=== PATIENT | male | born 1955 | race Caucasian/White ===

== ENCOUNTER 2017-08-29 17:33 | Inpatient (IN) ==
[2017-08-29] MEDS ORDERED: Vancomycin 2,000 MG in D5% in Water 250 ML IVPB ONE (20:37)
[2017-08-29] MEDS ORDERED: Ondansetron 4 MG/2 ML VIAL IVP ONE (20:42)
[2017-08-29] MEDS ORDERED: *HR* Morphine 2 MG/ML SYRINGE IVP ONE ×2 (20:43→22:17)
[2017-08-29] MEDS ORDERED: Vancomycin 2,000 MG in D5% in Water 500 ML IVPB ONE (20:44)
--- NOTE | 2017-08-29 20:44 | Emergency Department Note ---
Disposition Clinical Impression: Diabetic foot, Hyperglycemia Cellulitis Qualifiers: Site of cellulitis: extremity Site of cellulitis of extremity: lower extremity Laterality: right Qualified Code(s): L03.115 - Cellulitis of right lower limb Disposition: Admitted As Inpatient Condition: Fair Extremity Problem HPI - General Chief complaint: ED Extremity Problem,Nontraumatic Stated complaint: stepped on toothpick 6 days ago Time Seen by Provider: 08/29/17 20:16 Source: patient, EMS Mode of arrival: EMS Limitations: no limitations Nursing Notes Reviewed: Yes Vital Signs Reviewed: Yes - History of Present Illness HPI Narrative: 62-year-old male with history of CAD, diabetes, hypertension presents for evaluation of right foot pain. Patient states he stepped on a toothpick approximately 6 days ago. At that time the plate toothpick was removed with the assistance of the patient's family. Patient's had worsening pain since then. Patient denies any fevers but does note redness and swelling has worsened in the past 24 hours. Patient was evaluated the [facility] and was transferred for further evaluation. Patient states that pain is primarily in his right foot. Patient denies any other symptoms. No chest pain or shortness of breath. No nausea or vomiting. Patient Pain Scale: 9 - Related Data Allergies Allergy/AdvReac Type Severity Reaction Status Date / Time lisinopril AdvReac Cough Verified 08/29/17 17:41 Past Medical History - Past Medical History Medical history: Reports: coronary artery disease, diabetes, hyperlipidemia, hypertension Psychiatric history: Reports: other - Social History Smoking Status: Never smoker Alcohol use: Reports: none Drug use: Reports: none Physical Exam - General Limitations: no limitations General appearance: alert, obese - Head Head exam: atraumatic, normocephalic, normal inspection - Eye Eye exam: Present: normal appearance, EOMI - ENT ENT exam: normal exam - Neck Neck exam: Present: normal inspection - Chest Chest inspection: Present: normal inspection, symmetric chest wall rise - Respiratory Respiratory exam: Present: normal lung sounds bilaterally. Absent: respiratory distress - Cardiovascular Cardiovascular exam: Present: regular rate, normal rhythm - Abdominal Exam Abdominal exam: Present: soft, Non-Tender - Extremities Exam Extremities exam: Present: normal inspection, other (Erythema and swelling on the dorsum and plantar aspect of the right foot. Brisk cap refill. Neurovascularly intact. Skin marker outlining erythema.) - Neurological Exam Neurological exam: Present: alert, oriented X3 - Skin Skin exam: Present: warm Course Course Narrative: Patient seen and examined. Patient's lab work was reviewed from the [facility]. Patient will be admitted to the hospital service on antibiotic therapy to ensure symptom resolution. Patient was started on vancomycin as well as Zosyn. - Consultations Consultation #1: Spoke with podiatry regarding the patient. Patient would likely need podiatry consult in the hospital setting. Time: 22:12 Vital Signs Temperature 97.3 F L 08/29/17 17:36 Pulse Rate 88 08/29/17 17:36 Respiratory Rate 20 08/29/17 17:36 Blood Pressure 130/88 08/29/17 17:36 O2 Sat by Pulse Oximetry 97 08/29/17 17:36 Temperature 97.3 F L 08/29/17 17:36 Pulse Rate 88 08/29/17 17:36 Respiratory Rate 18 08/29/17 21:31 Blood Pressure 148/78 08/29/17 21:31 O2 Sat by Pulse Oximetry 97 08/29/17 17:36 Oxygen Delivery Oxygen Delivery Room Air Extremity Problem, Nontraumati - MDM Narrative Medical decision making narrative: CT 2-year-old male patients for evaluation of right foot cellulitis. Patient is step on a toothpicks proximally 6 days ago. It was verified at the toothpick was removed from the patient's foot. Ultrasound of the right foot does not show any evidence of foreign body. Patient does have evidence of cellulitis. Patient is at high risk for worsening infection given his history of diabetes and other comorbidities. Patient was transferred from the [facility] as he did not have podiatry. Patient was started on antibiotics in the emergency department. Patient had a foot x-ray obtained at the [facility]. Patient also had initial lab work obtained at the [facility] as well. Patient's pain was controlled emergency department. Patient will be admitted to the hospital service for further evaluation and monitoring. - Lab Data Lab results reviewed: Yes I reviewed the patient's lab results. Result diagrams: 08/29/17 20:48 08/29/17 20:48 Lab Results 08/29/17 08/29/17 Range/Units 20:48 20:48 WBC 11.1 (4.3-11.1) K/mcL RBC 4.93 (4.19-5.50) M/mcL Hgb 13.6 (12.9-16.9) g/dL Hct 42.5 (37.5-50.1) % MCV 86.2 (83.0-100.0) fL MCH 27.6 L (28.0-33.3) pg MCHC 32.0 (31.6-35.5) g/dL RDW 14.2 (11.5-14.5) % Plt Count 289 (140-400) K/mcL MPV 10.4 (9.4-12.4) fL Immature Gran % 0.5 (0-4) % Seg Neutrophils % 68.1 % Lymphocytes % 20.8 % Monocytes % 9.2 % Eosinophils % 1.0 % Basophils % 0.4 % Neutrophils # 7.6 (1.6-8.9) K/mcL Lymphocytes # 2.3 (0.6-4.6) K/mcL Monocytes # 1.0 (0.0-1.3) K/mcL Eosinophils # 0.1 (0.0-0.6) K/mcL Basophils # 0.0 (0.0-0.2) K/mcL Sodium 138 (136-145) mEq/L Potassium 4.4 (3.5-5.1) mEq/L Chloride 104 (98-107) mEq/L Carbon Dioxide 24 (23-29) mEq/L BUN 19 (8-23) mg/dL Creatinine 1.00 (0.70-1.30) mg/dL Est GFR ( Amer) > 60 (> 60) Est GFR (Non-Af Amer) > 60 (> 60) BUN/Creatinine Ratio 19 (6-26) Glucose 206 H (70-105) mg/dL Calculated Osmolality 294 (280-300) Calcium 9.1 (8.6-10.3) mg/dL Attestation Statement - Attestation Attestation: I examined this patient and my medical decision-making was reviewed with the Resident Physician. I agree with the documented findings, disposition and treatment plan as described except to the extent set forth below. Diabetic with foot infection S/P stepping on toothpick a few days ago. Toothpick removed, thinks it was removed intact but not sure. No FB visible on Dr. Bazzi' ultrasound, but sensitivity of this study is suboptimal. Discussed with podiatry, they will evaluate. Admission to medicine on IV abx. SIRS negative.
[2017-08-29 20:55] LABS: Basophils % 0.4 %; Eosinophils # 0.1 K/mcL (0.0-0.6); Hematocrit 42.5 % (37.5-50.1); Hemoglobin 13.6 g/dL (12.9-16.9); Immature Granulocytes % 0.5 % (0-4); Lymphocytes # 2.3 K/mcL (0.6-4.6); Lymphocytes % 20.8 %; Mean Corpuscular Hemoglobin 27.6 pg (28.0-33.3); Mean Corpuscular Volume 86.2 fL (83.0-100.0); Mean Platelet Volume 10.4 fL (9.4-12.4); Monocytes % 9.2 %; Neutrophils # 7.6 K/mcL (1.6-8.9); Platelet Count 289 K/mcL (140-400); Red Blood Count 4.93 M/mcL (4.19-5.50); Red Cell Distribution Width 14.2 % (11.5-14.5); Segmented Neutrophils % 68.1 %
[2017-08-29 21:19] LABS: BUN/Creatinine Ratio 19 (6-26); Blood Urea Nitrogen 19 mg/dL (8-23); Calcium 9.1 mg/dL (8.6-10.3); Carbon Dioxide 24 mEq/L (23-29); Chloride 104 mEq/L (98-107); Glucose 206 mg/dL (70-105); Osmolality,Calculated 294 (280-300); Potassium 4.4 mEq/L (3.5-5.1); Sodium 138 mEq/L (136-145); eGFR For African Americans > 60 (> 60); eGFR For Non-African Americans > 60 (> 60)
[2017-08-29] MEDS ORDERED: Piperacillin/Tazobactam 3.375 GM/200 ML BAG IVPB ONE (22:03)
--- NOTE | 2017-08-30 05:48 | Internal Med History&Physical ---
<Mark Anthony Bowers - Last Filed: 08/30/17 07:18> Date of Encounter: 08/30/17 Time of Encounter: 05:00 Assessment and Plan (1) Cellulitis Current visit: Yes Status: Acute R foot cellulitis, pt afebrile, stable--injury sustained after stepping on wooden toothpick, whole toothpick removed by family member 6 days ago. XR foot obtained at [facility]; normal osseous alignment, no osseous involvement, no retained foreign body. Would/blood culture obtained at [facility] as well; pending, will need to request results. Consider podiatry consult. Continue Vanc/Zosyn. Qualifiers: Site of cellulitis: extremity Site of cellulitis of extremity: lower extremity Laterality: right Qualified Code(s): L03.115 - Cellulitis of right lower limb (2) Type 2 diabetes mellitus Current visit: Yes Status: Acute On SSI Qualifiers: Diabetes mellitus complication status: without complication Diabetes mellitus snf insulin use: without loom changeover operator use Qualified Code(s): E11.9 - Type 2 diabetes mellitus without complications (3) CAD (coronary artery disease) Current visit: Yes Status: Acute S/P stenting after [place] 2 1/2 years ago. Continue ASA, statin, BB, hydralazine Qualifiers: Coronary Disease-Associated Artery/Lesion type: [place] artery [place] vs. transplanted heart: [place] heart Associated angina: without angina Qualified Code(s): I25.10 - Atherosclerotic heart disease of [place] coronary artery without angina pectoris (4) HTN (hypertension) Current visit: Yes Status: Acute Chronic, continue BB, hydralazine. Qualifiers: Hypertension type: essential hypertension Qualified Code(s): I10 - Essential (primary) hypertension Internal Medicine - H&P: HPI Admitted From: Home Plans for Post Hospital Care: Home History of present illness: Mr. Rico is a 62 year old male PMH CAD stenting 2 1/2 years ago, DM2 non- insulin dependent, presents with 6d of R foot pain after stepping on a toothpick. Pt had a family member remove the toothpick. [facility], showing no osseous involvement, no retained foreign object. Cultures obtained at [facility] as well. ED started vanc/zosyn. Currently stable, denying fever, chills, tachypnea. Wound is well-dressed, ED removed some pus and blood, wound is approx 1/2 centimeter in size. Past Med Surg Social Fam HX - Past Medical History Medical history: coronary artery disease, diabetes, hyperlipidemia, hypertension Psychiatric history: other - Social History Smoking Status: Never smoker Alcohol use: none Drug use: none Internal Medicine - H&P: Meds Aspirin Enteric Coated [Aspirin EC] 81 mg PO DAILY 08/29/17 [History] Carvedilol 12.5 mg PO BID 08/29/17 [History] Metformin HCl [Glucophage] 1,000 mg PO QAM 08/29/17 [History] Sildenafil Citrate [Viagra] 100 mg PO AD PRN 08/29/17 [History] Simvastatin [Zocor] 40 mg PO HS 08/29/17 [History] glipiZIDE [Glucotrol] 5 mg PO BIDWM 08/29/17 [History] hydrALAZINE [HydrALAZINE] 25 mg PO Q6HR 08/29/17 [History] metFORMIN [Glucophage] 500 mg PO BID 08/29/17 [History] 3 Allergy/AdvReac Type Severity Reaction Status Date / Time lisinopril AdvReac Cough Verified 08/29/17 17:41 All Systems PM: A 10-system review of systems was performed and is negative for pertinent findings except as documented above in the HPI. - Constitutional Vitals: Temp Pulse Resp BP Pulse Ox 97.9 F 94 18 152/95 94 08/30/17 04:07 08/30/17 04:07 08/30/17 04:07 08/30/17 04:07 08/30/17 04:07 General appearance: Present: A&O X 3, no acute distress, answers questions appropriately Exam: essential tremor, old - Neck Neck exam general surgery: Present: full ROM. Absent: nuchal rigidity - Respiratory Respiratory exam: Present: CTAB - Cardiovascular Cardiovascular exam: Present: RRR, +S1, +S2. Absent: systolic murmur - Extremities Exam Extremities exam: Present: normal capillary refill, warm. Absent: calf tenderness Internal Med - H&P Results - Labs CBC & Chem 7: 08/29/17 20:48 08/30/17 06:04 <Kali Lambert - Last Filed: 08/30/17 08:40> Date of Encounter: 08/30/17 Internal Medicine - H&P: HPI History of present illness: Mr. Rico is a 62 year old male All Systems PM: A 10-system review of systems was performed and is negative for pertinent findings except as documented above in the HPI. - Constitutional Vitals: Temp Pulse Resp BP Pulse Ox 97.9 F 91 15 139/88 92 08/30/17 07:03 08/30/17 07:03 08/30/17 07:03 08/30/17 07:03 08/30/17 07:03 Internal Med - H&P Results - Labs CBC & Chem 7: 08/30/17 06:04 08/30/17 06:04 Labs: Short CBC 08/30/17 Range/Units 06:04 WBC 11.3 H (4.3-11.1) K/mcL Hgb 13.4 (12.9-16.9) g/dL Hct 41.8 (37.5-50.1) % Plt Count 294 (140-400) K/mcL Neutrophils # 7.5 (1.6-8.9) K/mcL BMP 08/30/17 06:04 Sodium 137 Potassium 4.2 Chloride 102 Carbon Dioxide 24 BUN 16 Creatinine 0.91 Glucose 159 H Calcium 9.2 - Attending Attestation Patient seen and examined, case discussed with resident physician, agree with H& P as listed above Patient stated he had R foot pain after stepping on a toothpick 6 days ago. X- ray no evidence of foreign body, patient complaining of pain and swelling right feet O right foot swelling and tenderness and redness A/P Right foot cellulitis Diabetes mellitus Continue current antibiotic, MRSA screening, if MRSA screening negative discontinue vancomycin. Insulin sliding scale. Continue home medication
[2017-08-30] MEDS ORDERED: Acetaminophen 325 MG TABLET PO PRN (05:53)
[2017-08-30] MEDS ORDERED: Ondansetron ODT 4 MG TAB.RAPDIS SL PRN (05:53)
[2017-08-30] MEDS ORDERED: Naloxone 0.4 MG/ML INJ IVP PRN (05:53)
[2017-08-30] MEDS ORDERED: D5% in Water 1,000 ML IVC PRN (05:57)
[2017-08-30] MEDS ORDERED: Dextrose Gel 15 GM/37.5 ML TUBE PO PRN ×2 (05:57)
[2017-08-30] MEDS ORDERED: *HR* Dextrose 50 % in Water (Syg) 50 ML SYRINGE IVP PRN (05:57)
[2017-08-30] MEDS ORDERED: Vancomycin 2,000 MG in D5% in Water 500 ML IVPB SCH (06:00)
[2017-08-30] MEDS: hydrALAZINE 25 MG TABLET PO SCH ×3 (06:50→16:35)
[2017-08-30 07:03] LABS: BUN/Creatinine Ratio 18 (6-26); Blood Urea Nitrogen 16 mg/dL (8-23); Calcium 9.2 mg/dL (8.6-10.3); Carbon Dioxide 24 mEq/L (23-29); Chloride 102 mEq/L (98-107); Glucose 159 mg/dL (70-105); Osmolality,Calculated 289 (280-300); Potassium 4.2 mEq/L (3.5-5.1); Sodium 137 mEq/L (136-145); eGFR For African Americans > 60 (> 60); eGFR For Non-African Americans > 60 (> 60)
[2017-08-30 07:43] LABS: Basophils % 0.4 %; Eosinophils # 0.1 K/mcL (0.0-0.6); Eosinophils % 1.2 %; Hematocrit 41.8 % (37.5-50.1); Hemoglobin 13.4 g/dL (12.9-16.9); Immature Granulocytes % 0.4 % (0-4); Lymphocytes # 2.5 K/mcL (0.6-4.6); Lymphocytes % 21.6 %; Mean Corpuscular HGB Conc 32.1 g/dL (31.6-35.5); Mean Corpuscular Hemoglobin 27.8 pg (28.0-33.3); Mean Corpuscular Volume 86.7 fL (83.0-100.0); Mean Platelet Volume 10.9 fL (9.4-12.4); Monocytes # 1.2 K/mcL (0.0-1.3); Monocytes % 10.5 %; Neutrophils # 7.5 K/mcL (1.6-8.9); Platelet Count 294 K/mcL (140-400); Red Blood Count 4.82 M/mcL (4.19-5.50); Red Cell Distribution Width 14.2 % (11.5-14.5); Segmented Neutrophils % 65.9 %
--- NOTE | 2017-08-30 09:12 | Event Note ---
Date of Encounter: 08/30/17 Time of Encounter: 09:06 Patient is a 62y/o male with PMH Of CAD, DM, HTN, and morbid obesity who is admitted for right foot cellulitis Pt sustained injury to the right foot by stepping on a wooden toothpick about 6 days ago. Pt seen and examined at bedside. Reports of pain in the right foot. Pain medications started. Podiatry consultation requested hx of DM: holding oral antihyperglycemic agents, started sliding scale insulin algorithm, monitor FS and BG hx of CAD: no signs of angina present, continue home meds: ASA, BB, Statin hx of HTN: BP within acceptable range, continue home dose of Hydralazine. Heparin SQ for DVT ppx
[2017-08-30] MEDS: Aspirin Enteric Coated 81 MG Tablet PO SCH (09:23)
[2017-08-30] MEDS: Vancomycin 1,500 MG in D5% in Water 250 ML IVPB SCH ×2 (09:23→22:25)
[2017-08-30] MEDS: Piperacillin/Tazobactam 3.375 GM/200 ML BAG IVPB SCH ×2 (09:24→16:35)
[2017-08-30] MEDS: Insulin LISPRO 300 UNITS/3 ML VIAL SQ SCH ×4 (09:25→22:24)
[2017-08-30] MEDS: *HR* HYDROcodone/Acet 5/325 mg TABLET PO PRN ×2 (09:30→16:39)
[2017-08-30 09:50] LABS: Hemoglobin A1C 8.4 %
--- NOTE | 2017-08-30 12:35 | Podiatry Consult Note ---
Date of Encounter: 08/30/17 Time of Encounter: 12:00 Assessment and Plan (1) Cellulitis Current visit: Yes Status: Acute Cellulitis to the right foot secondary to stepping on a wooden toothpick, history of DM. Moderate amount of pus expressed from puncture wound. WBC:11.3 a febrile. Per records: XR foot obtained at [facility]; normal osseous alignment, no osseous involvement, no retained foreign body. Wound cultures obtained and pending, will need to request results. Plan: Dr. Vigil to plan on taking patient to surgery tomorrow (08/30/17) for an I&D of the right foot. Will make NPO after midnight. Will order and ESR and CRP. Agree with present antibiotic therapy, wound cultures obtained at the [facility] and pending. Dry sterile dressing applied to the right foot. Qualifiers: Site of cellulitis: extremity Site of cellulitis of extremity: lower extremity Laterality: right Qualified Code(s): L03.115 - Cellulitis of right lower limb (2) Diabetic foot Current visit: Yes Status: Acute (3) Type 2 diabetes mellitus Current visit: Yes Status: Acute Qualifiers: Diabetes mellitus complication status: without complication Diabetes mellitus oil heaterman insulin use: without oil heaterman use Qualified Code(s): E11.9 - Type 2 diabetes mellitus without complications History of Present Illness HPI: Mr. Rico is a 62 year old male admitted to [facility] for cellulitis of the right foot. Patient has a medical history significant for diabetes mellitus, hyperlipidemia, HTN and CAD. Patient states 6 days ago he was getting out of bed in the morning and stepped on a wooden toothpick with his right foot. Patient states the toothpick broke off and half of it was stuck in his foot. Patient states his friend tried to remove the rest of the toothpick. Patient states he has had increased pain, redness and swelling since the incident. Patient states he travels back and forth from [place] to [place] and flew in from [place] 4 days ago. Patient went to the [facility] ED last night. Per patient the [facility] obtained wound cultures and had an xray. No c/o fever or chills. Patient denies any history of diabetic foot ulcers or surgery to his feet. Patient rates the right foot pain currently at an 8 out of 10. Patient admits to tingling in his feet. Patient states his blood sugars run in the mid 100s and does not know his last hemoglobin A1C. Past Med Surg Social Fam HX - Past Medical History Medical history: coronary artery disease, diabetes, hyperlipidemia, hypertension Psychiatric history: other - Social History Smoking Status: Never smoker Alcohol use: none Drug use: none Medications and Allergies Aspirin Enteric Coated [Aspirin EC] 81 mg PO DAILY 08/29/17 [History] Carvedilol 12.5 mg PO BID 08/29/17 [History] Metformin HCl [Glucophage] 1,000 mg PO QAM 08/29/17 [History] Sildenafil Citrate [Viagra] 100 mg PO AD PRN 08/29/17 [History] Simvastatin [Zocor] 40 mg PO HS 08/29/17 [History] glipiZIDE [Glucotrol] 5 mg PO BIDWM 08/29/17 [History] hydrALAZINE [HydrALAZINE] 25 mg PO Q6HR 08/29/17 [History] metFORMIN [Glucophage] 500 mg PO BID 08/29/17 [History] 3 Allergy/AdvReac Type Severity Reaction Status Date / Time lisinopril AdvReac Cough Verified 08/29/17 17:41 All Systems Reviewed: A 10-system review of systems was performed and is negative for pertinent findings except as documented above in the HPI. Physical Exam - Constitutional Vitals: Temp Pulse Resp BP Pulse Ox 97.8 F 77 18 128/82 93 08/30/17 12:27 08/30/17 12:27 08/30/17 12:27 08/30/17 12:27 08/30/17 12:27 Exam: General appearance: alert awake oriented X 3. Calm and pleasant, no acute distress.. Vascular: Pedal pulses +1/4 DP/PT , No evidence of cyanosis, pallor or rubor, Edema graded at 1+/4, Skin Temperature warm, No calf pain with manual compression. capillary refill time is immediate to digits. Neurologic: Sensation intact with light touch to foot. . Integument: Right foot is edematous. Erythema to the plantar aspect of the right foot at the base of toes #2 through #4 right ascending to the dorsal aspect midfoot. Erythema does not ascend past outline area. Puncture wound 0.4 mm in diameter x 1 cm in depth to the plantar aspect at the base of toes #2 and #3 right foot, purulent drainage oozing from wound, increased pus expressed with compression to the surrounding skin of the wound, no probe to bone, no odor. Foot is warm to touch. Results - Labs Result Diagrams: 08/30/17 06:04 08/30/17 06:04 Labs: Abnormal lab results WBC 11.3 K/mcL (4.3-11.1) H 08/30/17 06:04 MCH 27.8 pg (28.0-33.3) L 08/30/17 06:04 Glucose 159 mg/dL (70-105) H 08/30/17 06:04 POC Glucose 174 (58-89) H 08/30/17 12:04 Hemoglobin A1c 8.4 % (-5.6) H 08/30/17 06:06 H & H 08/30/17 Range/Units 06:04 Hgb 13.4 (12.9-16.9) g/dL Hct 41.8 (37.5-50.1) % All other labs normal. Consult Discharge Plan - Plan Referrals: [facility] [Outside] - 09/07/17 2:45 pm
[2017-08-30] MEDS: *HR* Heparin 5,000 UNIT/ML VIAL SQ SCH ×2 (16:35→22:20)
[2017-08-31] MEDS: Piperacillin/Tazobactam 3.375 GM/200 ML BAG IVPB SCH ×3 (00:12→17:24)
[2017-08-31] MEDS: hydrALAZINE 25 MG TABLET PO SCH ×4 (00:17→17:23)
[2017-08-31 05:48] LABS: BUN/Creatinine Ratio 16 (6-26); Blood Urea Nitrogen 14 mg/dL (8-23); Calcium 9.1 mg/dL (8.6-10.3); Carbon Dioxide 25 mEq/L (23-29); Chloride 102 mEq/L (98-107); Glucose 129 mg/dL (70-105); Magnesium 1.8 mg/dL (1.6-2.6); Osmolality,Calculated 280 (280-300); Phosphorous 3.1 mg/dL (2.7-4.5); Sodium 134 mEq/L (136-145); eGFR For African Americans > 60 (> 60); eGFR For Non-African Americans > 60 (> 60)
[2017-08-31] MEDS: *HR* Heparin 5,000 UNIT/ML VIAL SQ SCH ×2 (05:58→13:54)
[2017-08-31 06:07] LABS: Basophils % 0.4 %; Eosinophils # 0.1 K/mcL (0.0-0.6); Eosinophils % 1.2 %; Hematocrit 42.6 % (37.5-50.1); Hemoglobin 13.5 g/dL (12.9-16.9); Immature Granulocytes % 0.6 % (0-4); Lymphocytes # 2.5 K/mcL (0.6-4.6); Lymphocytes % 23.3 %; Mean Corpuscular HGB Conc 31.7 g/dL (31.6-35.5); Mean Corpuscular Hemoglobin 27.2 pg (28.0-33.3); Mean Corpuscular Volume 85.9 fL (83.0-100.0); Mean Platelet Volume 10.5 fL (9.4-12.4); Monocytes # 1.1 K/mcL (0.0-1.3); Monocytes % 10.1 %; Platelet Count 293 K/mcL (140-400); Red Blood Count 4.96 M/mcL (4.19-5.50); Red Cell Distribution Width 14.2 % (11.5-14.5); Segmented Neutrophils % 64.4 %
[2017-08-31] MEDS: Insulin LISPRO 300 UNITS/3 ML VIAL SQ SCH ×3 (07:21→17:36)
[2017-08-31] MEDS: Vancomycin 1,500 MG in D5% in Water 250 ML IVPB SCH (11:15)
[2017-08-31] MEDS: Aspirin Enteric Coated 81 MG Tablet PO SCH (11:16)
--- NOTE | 2017-08-31 12:36 | Podiatry Progress Note ---
Date of Encounter: 08/31/17 Time of Encounter: 10:25 - Assessment and Plan (1) Abscess of right foot Current Visit: Yes Status: Acute discussed condition and infection/abscess present. discussed surgery (I&D or antibiotics or a combination of both)discussed with patient he could lose his leg or part of his foot. in agreement with the I&D. risks vs benefits potential complications and consequences of the procedure discussed with the patient. all questions answered informed consent was signed. get ID consult for antibiotics recommendations. remain NPO. weight caller to OR. I've been paged multiple times for this okay to cleanse foot separate from the rest of his body or can leave it alone. I do not want the bandage to be wet and him sitting around in a wet bandage, the patient was told this. Subjective Interval history: admitted with right diabetic foot infection and purulent drainage. he stepped on a tooth pick about a week ago. reciving IV antibiotics. patient and family requesting to eat despite knowing he needs to remain npo for surgery. Objective - Vital Signs Vital Signs: Vital Signs Temp Pulse Resp BP Pulse Ox 08/31/17 12:11 99.0 F 89 20 169/84 93 08/31/17 06:40 98.5 F 82 18 156/82 93 08/31/17 04:51 99.0 F 81 15 143/80 93 08/30/17 19:17 98.7 F 92 15 162/73 93 08/30/17 15:19 97.6 F 98 18 144/84 97 Intake and Output 08/30/17 08/31/17 08/31/17 23:59 07:59 15:59 Intake Total 450 / 450 200 / 200 0 / 0 Output Total 0 / 0 0 / 0 Balance 450 / 450 200 / 200 0 / 0 Intake: IV Fluids 450 / 450 200 / 200 Zosyn Premix 3.375 GM/200 ML 3. 200 / 200 200 / 200 375 gm In 200 ml @ 50 mls/hr IVPB Q8HR PAULINE Rx#:[id number] Vancocin 1,500 MG In Dextrose 5 250 / 250 % 250 ML @ 166.67 mls/hr IVPB Q12H PAULINE Rx#:[id number] Oral 0 / 0 0 / 0 0 / 0 Output: Urine 0 / 0 0 / 0 Other: Meal NPO Percent of Meal Consumed 0% Stool Size Moderate Stool Consistency formed Stool Color Brown # Voids 1 # Bowel Movements 1 Weight 144.9 kg Blood Glucose* 191 129 165 Patient Weight 08/31/17 23:59 Weight 144.9 kg - Exam Exam: cellulitis plantar and dorsal foot, purulent drainage plantar foot - Lab Result Diagrams: 08/31/17 04:50 08/31/17 04:50 Labs: Abnormal lab results MCH 27.2 pg (28.0-33.3) L 08/31/17 04:50 ESR >= 130 mm/hr (0-10) H 08/30/17 17:54 Sodium 134 mEq/L (136-145) L 08/31/17 04:50 Glucose 129 mg/dL (70-105) H 08/31/17 04:50 POC Glucose 129 (58-89) H 08/31/17 05:33 Hemoglobin A1c 8.4 % (-5.6) H 08/30/17 06:06 C-Reactive Protein 77 mg/L (Less than 10) H 08/30/17 17:54 Consult Discharge Plan - Plan Referrals: [facility] [Outside] - 09/07/17 2:45 pm
[2017-08-31] MEDS ORDERED: Furosemide 40 MG TABLET PO SCH (14:00)
--- NOTE | 2017-08-31 14:58 | Internal Med Progress Note ---
Date of Encounter: 08/31/17 Time of Encounter: 14:05 - Subjective Interval history: Patient seen and examined with family present at bedside. Resting in chair and reports of pain in his foot, however has not been asking for his pain medications. Pt informed that he has pain medications ordered, and will be only administer per request. Pt is tentatively scheduled to go to the OR later today for I&D of the foot. - Assessment and Plan (1) Abscess of right foot Podiatry on board and consultation appreciated Tentatively scheduled for OR later today for I&D of foot continue empiric IV abx (Vanco and Zosyn Day 2, start date: 08/30/17) f/u wound cultures ID not available over the weekend for consultation, consider ID evaluation when available (2) Type 2 diabetes mellitus Current visit: Yes Status: Acute BG within acceptable range continue sliding scale insulin algorithm monitor FS and BG ADA diet post-op Qualifiers: Diabetes mellitus complication status: without complication Diabetes mellitus halfway insulin use: without halfway use Qualified Code(s): E11.9 - Type 2 diabetes mellitus without complications (3) CAD (coronary artery disease) Current visit: Yes Status: Acute no signs of chest pain Continue ASA, statin, BB, hydralazine Qualifiers: Coronary Disease-Associated Artery/Lesion type: [place] artery [place] vs. transplanted heart: [place] heart Associated angina: without angina Qualified Code(s): I25.10 - Atherosclerotic heart disease of [place] coronary artery without angina pectoris (4) HTN (hypertension) Current visit: Yes Status: Acute Noted to be hypertensive at this time will continue home meds hy Qualifiers: Hypertension type: essential hypertension Qualified Code(s): I10 - Essential (primary) hypertension DVT ppx: heparin SQ - Constitutional Vitals: Temp Pulse Resp BP Pulse Ox 99.0 F 89 20 169/84 93 08/31/17 12:11 08/31/17 12:11 08/31/17 12:11 08/31/17 12:11 08/31/17 12:11 General appearance: Present: A&O X 3, no acute distress, answers questions appropriately - Head Head exam: Present: atraumatic, normocephalic - Eye Eye exam: Present: conjuntiva pink, sclera anicteric - Respiratory Respiratory exam: Present: CTAB. Absent: respiratory distress, wheezes - Cardiovascular Cardiovascular exam: Present: RRR, +S1, +S2. Absent: diastolic murmur, gallop, rubs, systolic murmur - GI/Abdominal GI/Abdominal exam: Present: normal bowel sounds, soft, no peritoneal signs. Absent: distended, tenderness - Extremities Exam Extremities exam: Present: pedal edema, warm, radial pulses palpable and symmetrical (right foot erythema-dressing intact ). Absent: calf tenderness - Neurological Exam Neurological exam: Present: alert, oriented X3 Internal Medicine: Result - Labs CBC & Chem 7: 08/31/17 04:50 08/31/17 04:50 Labs: Short CBC 08/31/17 Range/Units 04:50 WBC 10.9 (4.3-11.1) K/mcL Hgb 13.5 (12.9-16.9) g/dL Hct 42.6 (37.5-50.1) % Plt Count 293 (140-400) K/mcL Neutrophils # 7.0 (1.6-8.9) K/mcL BMP 08/31/17 04:50 Sodium 134 L Potassium 4.0 Chloride 102 Carbon Dioxide 25 BUN 14 Creatinine 0.86 Glucose 129 H Calcium 9.1 Consult Discharge Plan - Plan Referrals: [facility] [Outside] - 09/07/17 2:45 pm
[2017-08-31] MEDS ORDERED: *HR* LORazepam 2 MG/ML VIAL IVP ONE (17:04)
[2017-08-31] MEDS: *HR* HYDROcodone/Acet 5/325 mg TABLET PO PRN (17:36)
[2017-08-31] MEDS ORDERED: Vancomycin 1,000 MG VIAL ONE (21:03)
[2017-08-31] MEDS ORDERED: Lidocaine 1% 20 ML MDV ONE (21:03)
--- NOTE | 2017-08-31 21:08 | Anesthesia Evaluation PreOp ---
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: Denies Any Significant HX Other Medical History: Diabetes Type II, Other ([place]) Anesthesia History: No Prior Anesthetic Complications Alcohol Use: none Drug use: none Medications and Allergies Aspirin Enteric Coated [Aspirin EC] 81 mg PO DAILY 08/29/17 [History] Carvedilol 12.5 mg PO BID 08/29/17 [History] Metformin HCl [Glucophage] 1,000 mg PO QAM 08/29/17 [History] Sildenafil Citrate [Viagra] 100 mg PO AD PRN 08/29/17 [History] Simvastatin [Zocor] 40 mg PO HS 08/29/17 [History] glipiZIDE [Glucotrol] 5 mg PO BIDWM 08/29/17 [History] hydrALAZINE [HydrALAZINE] 25 mg PO Q6HR 08/29/17 [History] metFORMIN [Glucophage] 500 mg PO BID 08/29/17 [History] Furosemide [Lasix] 40 mg PO DAILY 08/31/17 [History] 3 Allergy/AdvReac Type Severity Reaction Status Date / Time lisinopril AdvReac Cough Verified 08/29/17 17:41 - Meds/Allergy Pre-op Review Medications Reviewed: Yes Allergies Reviewed: Yes Beta Blockers on Current Med List: No Anesthesia Results - Labs 08/31/17 04:50 08/31/17 04:50 Anesthesia Exam O2 Sat Weight 144.9 kg O2 Sat by Pulse Oximetry 95 O2 Sat by Pulse Oximetry 94 O2 Sat by Pulse Oximetry 93 O2 Sat by Pulse Oximetry 93 O2 Sat by Pulse Oximetry 93 Vital Signs Temp Pulse Resp BP Pulse Ox 97.3 F L 88 20 130/88 97 08/29/17 17:36 08/29/17 17:36 08/29/17 17:36 08/29/17 17:36 08/29/17 17:36 Height: 6'0 Weight: 320 lbs NPO (# of Hours): MN Pain Scale: 0 - HEENT Pupil (Motor): Pupils equal, EOMI Mallampati: III Teeth: Missing Oral Opening: Less than or equal to 3 - POWDER ROOM ATTENDANT LOC: Oriented POWDER ROOM ATTENDANT Motor: Normal RUE, Normal LUE, Normal RLE, Normal LLE, Normal Face POWDER ROOM ATTENDANT Sensory: Normal: RUE, LUE, LLE, Face, Deficit: RLE - Cardiac Rhythm: Regular Murmur: None JVD: No Carotid Bruit: No - Pulmonary Breath Sounds: bilateral Clear Respiratory Effort: Symmetrical Anesthesia Assess/Plan ASA Score: 3 ([place] DM CAD HTN) Modified [place] Scale for Level of Consciousness: Cooperative, oriented, and tranquil Anesthetic Plan: MAC Monitoring Plan: Standard Monitors Recovery Plan: PACU (Discussed MAC, possible GA, agrees to proceed)
[2017-08-31] MEDS ORDERED: *HR* FentaNYL (PF) 100 MCG/2 ML VIAL ONE (21:18)
[2017-08-31] MEDS ORDERED: Propofol 500 MG/50 ML INFUS..BTL ONE (21:18)
[2017-08-31] MEDS ORDERED: Lidocaine -MPF 2% 2 ML VIAL ONE (21:19)
--- NOTE | 2017-08-31 22:10 | Operative Note ---
Date of procedure: 08/31/17 Pre-op diagnosis: right foot abscess Post-op diagnosis: same Procedure: incision and drainage right foot abscess Implants: none Complications: none Anesthesia: MAC Local Anesthetics: 0.5% Sensorcaine HCL SubQ (cc), 1% Lidocaine HCL SubQ (cc) Surgeon: Partha Vigil Estimated blood loss (cc): 20 Specimen: right foot cultures Condition: stable Disposition: PACU Procedure in Detail: Indications: 62-year-old diabetic male with neuropathy who stepped on a toothpick at home and subsequently developed infection with purulent drainage the plantar aspect of the forefoot. Patient was admitted to the hospital and on IV antibiotics. Purulent drainage was expressed from the wound and the decision was made to take the patient operating room for an incision and drainage. Nature of procedure as well as the risks versus benefits potential complications and consequences of the procedure discussed with the patient and his at length on multiple occasions. It was explained to the patient that he could lose part of his foot or his leg. It was explained this could be a staged procedure and he could require more trips to the operating room. No guarantees were made as to the outcome and he understood that he will have a wound on the bottom of the foot which she will have to heal. All questions were answered and the informed consent was signed. Patient was taken from the preoperative holding area and operating room placed on the operating room table in the supine position. The right foot was scrubbed prepped and draped in the usual sterile fashion. The following procedures then began. Incision and drainage right foot. Attention was directed to the plantar aspect of the patient's right foot where submetatarsal 2 there was a pinhole with surrounding erythema and purulent drainage able to be expressed. A #15 blade was used to make a full thickness incision proximal and distal through subcutaneous tissue extending through this area. No foreign body was identified. There was purulent drainage expressed from distally from the base of the 2nd digit and lateral in the foot, a small amount medially and proximally. The area was probed and explored until no further purulence could be expressed. The site was then flushed with normal sterile saline with vancomycin. Upon reinspection, the area was probed and explored. No further purulence could be expressed and the area was packed open with iodoform packing. Postoperative bandaging included 4 x 4 gauze, Kerlix and an Vitor wrap. Patient tolerated the anesthesia and the procedure well and was escorted the recovery room with vital signs stable and vascular status intact to the right foot. He will return to the floor where he will continue IV antibiotics.
--- NOTE | 2017-08-31 22:31 | Anesthesia Evaluation Post Op ---
Date of Encounter: 08/31/17 Time of Encounter: 22:30 - Vital Signs Vital Signs: Vital Signs/O2 Sat/Glucose, Most Current Temp Pulse Resp BP Pulse Ox 08/31/17 19:50 99.1 F 84 15 148/79 95 - Lungs Lungs: Clear Ascult./Percussion - Airway Airway: Non-obstructed - Cardiovascular Regular Rate - Mental Status Mental Status: Alert & Oriented, Answers Appropriately - Pain Pain Scale: 0 - Nausea Vomiting Nausea Vomiting: Not Present - Hydration Hydration: NPO - Discharge PostOp Status: Transfer Patient to floor
[2017-09-01] MEDS: *HR* HYDROcodone/Acet 5/325 mg TABLET PO PRN ×3 (00:22→21:47)
[2017-09-01] MEDS: Piperacillin/Tazobactam 3.375 GM/200 ML BAG IVPB SCH ×3 (00:22→16:48)
[2017-09-01] MEDS ORDERED: Acetaminophen 325 MG TABLET PO PRN (00:43)
[2017-09-01] MEDS ORDERED: Naloxone 0.4 MG/ML INJ IVP PRN (00:43)
[2017-09-01] MEDS ORDERED: D5% in Water 1,000 ML IVC PRN (00:43)
[2017-09-01] MEDS ORDERED: Ondansetron ODT 4 MG TAB.RAPDIS SL PRN (00:43)
[2017-09-01] MEDS ORDERED: Dextrose Gel 15 GM/37.5 ML TUBE PO PRN ×2 (00:43)
[2017-09-01] MEDS ORDERED: *HR* Dextrose 50 % in Water (Syg) 50 ML SYRINGE IVP PRN (00:43)
[2017-09-01] MEDS ORDERED: *HR* Morphine 2 MG/ML SYRINGE IVP ONE (01:39)
[2017-09-01] MEDS ORDERED: *HR* HYDROcodone/Acet 5/325 mg TABLET PO ONE (01:42)
[2017-09-01] MEDS: *HR* Heparin 5,000 UNIT/ML VIAL SQ SCH ×4 (01:55→21:41)
[2017-09-01] MEDS: Vancomycin 1,500 MG in D5% in Water 250 ML IVPB SCH ×3 (01:55→14:09)
[2017-09-01] MEDS: Insulin LISPRO 300 UNITS/3 ML VIAL SQ SCH ×6 (01:56→21:39)
[2017-09-01 04:29] LABS: Basophils % 0.3 %; Eosinophils % 0.3 %; Hematocrit 39.8 % (37.5-50.1); Immature Granulocytes % 0.6 % (0-4); Lymphocytes # 1.6 K/mcL (0.6-4.6); Lymphocytes % 13.7 %; Mean Corpuscular HGB Conc 32.7 g/dL (31.6-35.5); Mean Corpuscular Hemoglobin 27.8 pg (28.0-33.3); Mean Platelet Volume 10.1 fL (9.4-12.4); Neutrophils # 8.8 K/mcL (1.6-8.9); Platelet Count 258 K/mcL (140-400); Red Blood Count 4.68 M/mcL (4.19-5.50); Red Cell Distribution Width 14.2 % (11.5-14.5); Segmented Neutrophils % 76.1 %
[2017-09-01 04:45] LABS: BUN/Creatinine Ratio 15 (6-26); Blood Urea Nitrogen 12 mg/dL (8-23); Calcium 8.8 mg/dL (8.6-10.3); Carbon Dioxide 24 mEq/L (23-29); Chloride 101 mEq/L (98-107); Glucose 245 mg/dL (70-105); Magnesium 1.6 mg/dL (1.6-2.6); Osmolality,Calculated 280 (280-300); Phosphorous 2.7 mg/dL (2.7-4.5); Potassium 4.3 mEq/L (3.5-5.1); Sodium 131 mEq/L (136-145); eGFR For African Americans > 60 (> 60); eGFR For Non-African Americans > 60 (> 60)
[2017-09-01] MEDS: hydrALAZINE 25 MG TABLET PO SCH ×4 (06:42→19:45)
[2017-09-01] MEDS: Aspirin Enteric Coated 81 MG Tablet PO SCH (08:45)
[2017-09-01] MEDS: Furosemide 40 MG TABLET PO SCH (08:48)
--- NOTE | 2017-09-01 11:19 | Podiatry Progress Note ---
Date of Encounter: 09/01/17 Time of Encounter: 09:45 - Assessment and Plan (1) Abscess of right foot Current Visit: Yes Status: Acute s/p incision and drainage. no purulence expressed today. wound flushed and packed with iodoform packing and will continue the same daily for now. recommend getting ID consult for antibiotics. f/u cultures from foot currently in lab. Subjective Interval history: s/p incision and drainage of the right foot. says he is not having much pain. denies f/c/n/v/sob/cp. Objective - Vital Signs Vital Signs: Vital Signs Temp Pulse Resp BP Pulse Ox 09/01/17 06:41 99.1 F 96 16 128/75 92 09/01/17 04:46 98.6 F 101 16 146/81 90 09/01/17 02:00 98.8 F 99 18 136/76 95 09/01/17 01:00 98.8 F 100 18 160/88 94 09/01/17 00:00 98.9 F 96 18 164/96 94 08/31/17 23:30 98.0 F 94 18 163/87 94 08/31/17 23:00 97.9 F 85 16 150/90 94 08/31/17 19:50 99.1 F 84 15 148/79 95 08/31/17 18:20 135/82 08/31/17 16:39 97.6 F 90 20 171/110 94 08/31/17 12:11 99.0 F 89 20 169/84 93 Intake and Output 08/31/17 09/01/17 09/01/17 23:59 07:59 15:59 Intake Total 200 / 200 0 / 0 240 / 240 Output Total 650 / 650 Balance 180 / 180 -650 / -650 240 / 240 Intake: IV Fluids 200 / 200 Zosyn Premix 3.375 GM/200 ML 3. 200 / 200 375 gm In 200 ml @ 50 mls/hr IVPB Q8HR [facility] Rx#:[id number] Oral 0 / 0 0 / 0 240 / 240 Output: Urine 0 / 0 650 / 650 Estimated Blood Loss Other: Meal Breakfast Percent of Meal Consumed 50% Stool Size Moderate Stool Consistency formed Stool Color Brown Blood Glucose* 156 222 - Exam Exam: obese male in no acute distress Vasc: CFT < 3 sec x 5 digits right foot. right foot warm to touch. Derm: erythema of the foot plantar and dorsal less intense than previous. no purulence able to be expressed from plantar foot. no fluctuance. Musc: can flex and extend digits, no pain with ankle, STJ or MTP joint ROM. Neuro: sensation absent to touch. - Lab Result Diagrams: 09/01/17 03:57 09/01/17 03:57 Labs: Abnormal lab results WBC 11.6 K/mcL (4.3-11.1) H 09/01/17 03:57 MCH 27.8 pg (28.0-33.3) L 09/01/17 03:57 ESR >= 130 mm/hr (0-10) H 08/30/17 17:54 Sodium 131 mEq/L (136-145) L 09/01/17 03:57 Glucose 245 mg/dL (70-105) H 09/01/17 03:57 POC Glucose 222 (58-89) H 09/01/17 07:53 Hemoglobin A1c 8.4 % (-5.6) H 08/30/17 06:06 C-Reactive Protein 77 mg/L (Less than 10) H 08/30/17 17:54 Consult Discharge Plan - Plan Referrals: [facility] [Outside] - 09/07/17 2:45 pm
--- NOTE | 2017-09-01 16:31 | Internal Med Progress Note ---
Date of Encounter: 09/01/17 Time of Encounter: 10:28 - Assessment and plan (1) DVT prophylaxis Current Visit: Yes Status: Acute Assessment and plan: Subcutaneous heparin. (2) Type 2 diabetes mellitus Current Visit: Yes Status: Acute Assessment and plan: Insulin sliding scale, Levemir and pretty meal bolus insulin to maintain glucose between 140 and 180. 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 Qualifiers: Coronary Disease-Associated Artery/Lesion type: [place] artery [place] vs. transplanted heart: [place] heart Associated angina: without angina Qualified Code(s): I25.10 - Atherosclerotic heart disease of [place] coronary artery without angina pectoris (4) HTN (hypertension) Current Visit: Yes Status: Acute Assessment and plan: Monitor blood pressure. Continue oral antihypertensive medication. Qualifiers: Hypertension type: essential hypertension Qualified Code(s): I10 - Essential (primary) hypertension (5) Abscess of right foot Current Visit: Yes Status: Acute Assessment and plan: Postoperative day one status post an incision and debridement of the abscess I will continue with empiric IV abx (Vanco and Zosyn Day 3, start date: 08/30/17) f/u wound cultures. Follow-up WBC trend and temperature curve. ID not available over the weekend for consultation, will consider ID evaluation when available. - Subjective Interval history: Patient reports right foot pain, dull aching, 8/10 in intensity, worse with ambulation. Improves with pain shot. He is postop day 1 after incision of the debridement of the right foot abscess. - Constitutional Vitals: Temp Pulse Resp BP Pulse Ox 98.4 F 89 16 135/73 93 09/01/17 15:38 09/01/17 15:38 09/01/17 15:38 09/01/17 15:38 09/01/17 15:38 General appearance: Present: A&O X 3, no acute distress, answers questions appropriately - Respiratory Respiratory exam: Present: CTAB. Absent: accessory muscle use, rales, rhonchi, wheezes - Cardiovascular Cardiovascular exam: Present: RRR, +S1, +S2. Absent: diastolic murmur, gallop, rubs, systolic murmur - GI/Abdominal GI/Abdominal exam: Present: normal bowel sounds, soft, no peritoneal signs. Absent: distended, tenderness - Extremities Exam Extremities exam: Present: warm, radial pulses palpable and symmetrical. Absent : calf tenderness, cyanotic, pedal edema Internal Medicine: Result - Labs CBC & Chem 7: 09/01/17 03:57 09/01/17 03:57 Labs: Short CBC 09/01/17 Range/Units 03:57 WBC 11.6 H (4.3-11.1) K/mcL Hgb 13.0 (12.9-16.9) g/dL Hct 39.8 (37.5-50.1) % Plt Count 258 (140-400) K/mcL Neutrophils # 8.8 (1.6-8.9) K/mcL BMP 09/01/17 03:57 Sodium 131 L Potassium 4.3 Chloride 101 Carbon Dioxide 24 BUN 12 Creatinine 0.78 Glucose 245 H Calcium 8.8 Consult Discharge Plan - Plan Referrals: [facility] [Outside] - 09/07/17 2:45 pm
[2017-09-01] MEDS: Insulin DETEMIR 100 UNIT/ML X5UNITS SQ SCH (21:41)
[2017-09-02] MEDS: hydrALAZINE 25 MG TABLET PO SCH ×4 (00:01→16:44)
[2017-09-02] MEDS: Vancomycin 1,500 MG in D5% in Water 250 ML IVPB SCH ×2 (02:59→13:48)
[2017-09-02] MEDS: *HR* HYDROcodone/Acet 5/325 mg TABLET PO PRN ×3 (03:04→20:18)
[2017-09-02 03:43] LABS: Basophils % 0.3 %; Eosinophils # 0.1 K/mcL (0.0-0.6); Eosinophils % 1.5 %; Hematocrit 38.2 % (37.5-50.1); Hemoglobin 12.6 g/dL (12.9-16.9); Immature Granulocytes % 0.5 % (0-4); Lymphocytes # 2.6 K/mcL (0.6-4.6); Mean Corpuscular Hemoglobin 28.1 pg (28.0-33.3); Mean Corpuscular Volume 85.3 fL (83.0-100.0); Mean Platelet Volume 10.4 fL (9.4-12.4); Monocytes # 0.9 K/mcL (0.0-1.3); Monocytes % 9.4 %; Neutrophils # 5.6 K/mcL (1.6-8.9); Platelet Count 251 K/mcL (140-400); Red Blood Count 4.48 M/mcL (4.19-5.50); Red Cell Distribution Width 14.1 % (11.5-14.5); Segmented Neutrophils % 60.3 %
[2017-09-02 04:12] LABS: BUN/Creatinine Ratio 17 (6-26); Blood Urea Nitrogen 17 mg/dL (8-23); Calcium 8.5 mg/dL (8.6-10.3); Carbon Dioxide 26 mEq/L (23-29); Chloride 102 mEq/L (98-107); Glucose 278 mg/dL (70-105); Osmolality,Calculated 290 (280-300); Potassium 3.9 mEq/L (3.5-5.1); Sodium 134 mEq/L (136-145); eGFR For African Americans > 60 (> 60); eGFR For Non-African Americans > 60 (> 60)
[2017-09-02] MEDS: *HR* Heparin 5,000 UNIT/ML VIAL SQ SCH ×3 (09:57→21:14)
[2017-09-02] MEDS: Insulin LISPRO 300 UNITS/3 ML VIAL SQ SCH ×8 (10:41→21:14)
[2017-09-02] MEDS: Aspirin Enteric Coated 81 MG Tablet PO SCH (10:42)
[2017-09-02] MEDS: Furosemide 40 MG TABLET PO SCH (10:42)
[2017-09-02] MEDS: Piperacillin/Tazobactam 3.375 GM/200 ML BAG IVPB SCH ×3 (10:42→16:40)
[2017-09-02] MEDS: Insulin DETEMIR 100 UNIT/ML X5UNITS SQ SCH ×2 (10:43→21:44)
--- NOTE | 2017-09-02 16:20 | Internal Med Progress Note ---
Date of Encounter: 09/02/17 Time of Encounter: 13:00 - Assessment and plan (1) DVT prophylaxis Current Visit: Yes Status: Acute Assessment and plan: Subcutaneous heparin. (2) Type 2 diabetes mellitus Current Visit: Yes Status: Acute Assessment and plan: Poorly controlled, glucose worse than and yesterday. Blood glucose in the upper 200s. Insulin sliding scale, Levemir and pre-meal bolus insulin to maintain glucose between 140 and 180. I will increase Levemir to 15 units twice a day. I will increase bolus insulin from 5-10 units. 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 Qualifiers: Coronary Disease-Associated Artery/Lesion type: [place] artery [place] vs. transplanted heart: [place] heart Associated angina: without angina Qualified Code(s): I25.10 - Atherosclerotic heart disease of [place] coronary artery without angina pectoris (4) HTN (hypertension) Current Visit: Yes Status: Acute Assessment and plan: Monitor blood pressure. Continue oral antihypertensive medication. Qualifiers: Hypertension type: essential hypertension Qualified Code(s): I10 - Essential (primary) hypertension (5) Abscess of right foot Current Visit: Yes Status: Acute Assessment and plan: Postoperative day 2 status post an incision and debridement of the abscess I will continue with empiric IV abx (Vanco and Zosyn Day 4, start date: 08/30/17) f/u wound cultures. Follow-up WBC trend and temperature curve. ID not available over the weekend for consultation, will consider ID evaluation when available. Records obtained from the [place] where the [facility] GPC. Identification to follow. Continue with vancomycin. ESR greater than 130 CRP highly elevated. Concern for osteomyelitis. I will obtain MRI of the foot to evaluate for osteomyelitis which with direct duration of therapy. - Subjective Interval history: Patient reports mild right foot pain, dull, worse with bearing weight, improved from yesterday. He is postop day 2 after incision of the debridement of the right foot abscess. - Constitutional Vitals: Temp Pulse Resp BP Pulse Ox 97.3 F L 80 16 150/82 95 09/02/17 11:36 12/24/17 11:36 09/02/17 11:36 09/02/17 11:36 09/02/17 11:36 General appearance: Present: A&O X 3, no acute distress, answers questions appropriately - Respiratory Respiratory exam: Present: CTAB. Absent: accessory muscle use, rales, rhonchi, wheezes - Cardiovascular Cardiovascular exam: Present: RRR, +S1, +S2. Absent: diastolic murmur, gallop, rubs, systolic murmur - GI/Abdominal GI/Abdominal exam: Present: normal bowel sounds, soft, no peritoneal signs. Absent: distended, tenderness - Extremities Exam Extremities exam: Present: warm, radial pulses palpable and symmetrical. Absent : calf tenderness, cyanotic, pedal edema Internal Medicine: Result - Labs CBC & Chem 7: 09/02/17 03:06 09/02/17 03:06 Labs: Short CBC 09/02/17 Range/Units 03:06 WBC 9.3 (4.3-11.1) K/mcL Hgb 12.6 L (12.9-16.9) g/dL Hct 38.2 (37.5-50.1) % Plt Count 251 (140-400) K/mcL Neutrophils # 5.6 (1.6-8.9) K/mcL BMP 09/02/17 03:06 Sodium 134 L Potassium 3.9 Chloride 102 Carbon Dioxide 26 BUN 17 Creatinine 0.98 Glucose 278 H Calcium 8.5 L Consult Discharge Plan - Plan Referrals: [facility] [Outside] - 09/07/17 2:45 pm
[2017-09-03] MEDS: hydrALAZINE 25 MG TABLET PO SCH ×4 (00:20→18:15)
[2017-09-03] MEDS: Piperacillin/Tazobactam 3.375 GM/200 ML BAG IVPB SCH ×4 (00:20→23:00)
[2017-09-03 02:33] LABS: Basophils # 0.1 K/mcL (0.0-0.2); Basophils % 0.8 %; Eosinophils # 0.2 K/mcL (0.0-0.6); Eosinophils % 2.5 %; Hematocrit 38.2 % (37.5-50.1); Hemoglobin 12.2 g/dL (12.9-16.9); Immature Granulocytes % 0.5 % (0-4); Immature Platelets 3.8 % (1.1-6.1); Lymphocytes # 2.3 K/mcL (0.6-4.6); Lymphocytes % 28.8 %; Mean Corpuscular HGB Conc 31.9 g/dL (31.6-35.5); Mean Corpuscular Hemoglobin 27.7 pg (28.0-33.3); Mean Corpuscular Volume 86.8 fL (83.0-100.0); Mean Platelet Volume 9.8 fL (9.4-12.4); Monocytes # 0.7 K/mcL (0.0-1.3); Monocytes % 8.8 %; Neutrophils # 4.6 K/mcL (1.6-8.9); Platelet Count 276 K/mcL (140-400); Red Cell Distribution Width 13.8 % (11.5-14.5); Segmented Neutrophils % 58.6 %
[2017-09-03 02:49] LABS: BUN/Creatinine Ratio 19 (6-26); Blood Urea Nitrogen 18 mg/dL (8-23); Calcium 8.5 mg/dL (8.6-10.3); Carbon Dioxide 26 mEq/L (23-29); Chloride 103 mEq/L (98-107); Glucose 262 mg/dL (70-105); Osmolality,Calculated 291 (280-300); Potassium 4.2 mEq/L (3.5-5.1); Sodium 135 mEq/L (136-145); eGFR For African Americans > 60 (> 60); eGFR For Non-African Americans > 60 (> 60)
[2017-09-03] MEDS: Vancomycin 1,500 MG in D5% in Water 250 ML IVPB SCH ×2 (03:10→12:49)
[2017-09-03] MEDS: *HR* Heparin 5,000 UNIT/ML VIAL SQ SCH ×3 (05:16→21:12)
[2017-09-03] MEDS: Insulin LISPRO 300 UNITS/3 ML VIAL SQ SCH ×7 (08:52→20:28)
[2017-09-03] MEDS: Furosemide 40 MG TABLET PO SCH (08:54)
[2017-09-03] MEDS: Insulin DETEMIR 100 UNIT/ML X5UNITS SQ SCH ×2 (08:54→21:12)
[2017-09-03] MEDS: Aspirin Enteric Coated 81 MG Tablet PO SCH (08:54)
[2017-09-03] MEDS: *HR* HYDROcodone/Acet 5/325 mg TABLET PO PRN (14:37)
[2017-09-03] MEDS ORDERED: Vancomycin 1,750 MG in D5% in Water 250 ML IVPB SCH (14:41)
--- NOTE | 2017-09-03 14:45 | Internal Med Progress Note ---
Date of Encounter: 09/03/17 Time of Encounter: 10:00 - Assessment and plan (1) DVT prophylaxis Current Visit: Yes Status: Acute Assessment and plan: Subcutaneous heparin. (2) Type 2 diabetes mellitus Current Visit: Yes Status: Acute Assessment and plan: Poorly controlled, glucose worse than and yesterday. Blood glucose in the mid 200s. Insulin sliding scale, Levemir and pre-meal bolus insulin to maintain glucose between 140 and 180. I will increase Levemir to 24 units twice a day. I will continue bolus pre- meal insulin at 10 units 3 times a day before meals. Qualifiers: Diabetes mellitus complication status: without complication Diabetes mellitus snf insulin use: without petroleum terminal plant operator use Qualified Code(s): E11.9 - Type 2 diabetes mellitus without complications (3) CAD (coronary artery disease) Current Visit: Yes Status: Acute Assessment and plan: Continue with aspirin and Coreg and statin. Qualifiers: Coronary Disease-Associated Artery/Lesion type: [place] artery [place] vs. transplanted heart: [place] heart Associated angina: without angina Qualified Code(s): I25.10 - Atherosclerotic heart disease of [place] coronary artery without angina pectoris (4) HTN (hypertension) Current Visit: Yes Status: Acute Assessment and plan: Monitor blood pressure. Continue oral antihypertensive medication. Qualifiers: Hypertension type: essential hypertension Qualified Code(s): I10 - Essential (primary) hypertension (5) Abscess of right foot Current Visit: Yes Status: Acute Assessment and plan: Postoperative day 3 status post an incision and debridement of the abscess I will continue with empiric IV abx (Vanco and Zosyn Day 5, start date: 08/30/17) f/u wound cultures. Follow-up WBC trend and temperature curve. ID not available over the long weekend for consultation, will consider ID evaluation when available. [facility] GPC. Wound culture from her hospital noted to result no growth. MRI of the foot obtained yesterday reveals no evidence of osteomyelitis. Extensive myositis and some gas in the tissue likely secondary to the procedure. Continue with Zosyn and vancomycin. I will increase the dose to 1750 mg every 12 hours. Trough level is within the low-normal range at 10. He remains on him morbidity and mortality risk due to IV vancomycin which requires blood level monitoring for toxicity. ESR greater than 130 CRP highly elevated. Concern for osteomyelitis. I will obtain MRI of the foot to evaluate for osteomyelitis which with direct duration of therapy. - Subjective Interval history: Patient reports mild, total right forefoot soreness. Denies associated fevers chills tingling and numbness. He is postop day 3 after incision of the debridement of the right foot abscess. - Constitutional Vitals: Temp Pulse Resp BP Pulse Ox 97.3 F L 78 18 145/78 94 09/03/17 14:29 09/03/17 14:29 09/03/17 14:29 09/03/17 14:29 09/03/17 14:29 General appearance: Present: A&O X 3, no acute distress, answers questions appropriately - Eye Eye exam: Present: PERRL, conjuntiva pink, sclera anicteric Pupils: Present: PERRL - Respiratory Respiratory exam: Present: CTAB. Absent: accessory muscle use, rales, rhonchi, wheezes - Cardiovascular Cardiovascular exam: Present: RRR, +S1, +S2. Absent: diastolic murmur, gallop, rubs, systolic murmur - GI/Abdominal GI/Abdominal exam: Present: normal bowel sounds, soft, no peritoneal signs. Absent: distended, tenderness - Extremities Exam Extremities exam: Present: warm, radial pulses palpable and symmetrical. Absent : calf tenderness, cyanotic, pedal edema Internal Medicine: Result - Labs CBC & Chem 7: 09/03/17 02:25 09/03/17 02:25 Labs: Short CBC 09/03/17 Range/Units 02:25 WBC 7.9 (4.3-11.1) K/mcL Hgb 12.2 L (12.9-16.9) g/dL Hct 38.2 (37.5-50.1) % Plt Count 276 (140-400) K/mcL Neutrophils # 4.6 (1.6-8.9) K/mcL BMP 09/03/17 02:25 Sodium 135 L Potassium 4.2 Chloride 103 Carbon Dioxide 26 BUN 18 Creatinine 0.97 Glucose 262 H Calcium 8.5 L - Impressions Impressions Foot MRI 09/02/17 16:16 IMPRESSION: 1. No MR evidence for osteomyelitis. 2. Moderate diffuse cellulitis of the foot primarily at the dorsal aspect. Moderate diffuse myositis of the visualized intertarsal musculature. 3. Ulcer, sinus tract and associated nonenhancing devitalized soft tissue at the plantar aspect of the forefoot subjacent to the 2nd web space and proximal 2nd and 3rd digits measuring 3.5 x 1.3 x 1.7 cm. Susceptibility artifact in this region from soft tissue gas likely from the sinus tract an ulcer is present. A component of this may be related to recent I and D procedure. 4. No discrete organized peripherally enhancing fluid collection. The findings were sent to the Radiology Results Communication Center at 8:46 am on 09/03/2017to be communicated to a licensed caregiver. D/ / Abdiel Blanco MD / Abdiel Blanco MD Interpreting Provider: Abdiel Blanco MD Consult Discharge Plan - Plan Referrals[facility] [Outside] - 09/07/17 2:45 pm
[2017-09-04] MEDS: Vancomycin 1,500 MG in D5% in Water 250 ML IVPB SCH ×2 (00:49→12:10)
[2017-09-04] MEDS: hydrALAZINE 25 MG TABLET PO SCH ×4 (02:55→17:02)
[2017-09-04 04:46] LABS: Basophils # 0.1 K/mcL (0.0-0.2); Basophils % 0.6 %; Eosinophils # 0.3 K/mcL (0.0-0.6); Eosinophils % 3.1 %; Hematocrit 40.2 % (37.5-50.1); Hemoglobin 12.7 g/dL (12.9-16.9); Immature Granulocytes % 0.5 % (0-4); Lymphocytes # 2.5 K/mcL (0.6-4.6); Mean Corpuscular HGB Conc 31.6 g/dL (31.6-35.5); Mean Corpuscular Hemoglobin 27.4 pg (28.0-33.3); Mean Corpuscular Volume 86.8 fL (83.0-100.0); Mean Platelet Volume 10.5 fL (9.4-12.4); Monocytes # 0.7 K/mcL (0.0-1.3); Monocytes % 7.8 %; Platelet Count 295 K/mcL (140-400); Red Blood Count 4.63 M/mcL (4.19-5.50); Red Cell Distribution Width 13.9 % (11.5-14.5)
[2017-09-04 04:48] LABS: BUN/Creatinine Ratio 15 (6-26); Blood Urea Nitrogen 15 mg/dL (8-23); Calcium 8.5 mg/dL (8.6-10.3); Carbon Dioxide 28 mEq/L (23-29); Chloride 101 mEq/L (98-107); Glucose 218 mg/dL (70-105); Osmolality,Calculated 285 (280-300); Potassium 4.2 mEq/L (3.5-5.1); Sodium 134 mEq/L (136-145); eGFR For African Americans > 60 (> 60); eGFR For Non-African Americans > 60 (> 60)
[2017-09-04] MEDS: *HR* Heparin 5,000 UNIT/ML VIAL SQ SCH ×3 (06:19→20:48)
[2017-09-04] MEDS: Aspirin Enteric Coated 81 MG Tablet PO SCH (08:11)
[2017-09-04] MEDS: Furosemide 40 MG TABLET PO SCH (08:11)
[2017-09-04] MEDS: Piperacillin/Tazobactam 3.375 GM/200 ML BAG IVPB SCH (08:12)
[2017-09-04] MEDS: Insulin LISPRO 300 UNITS/3 ML VIAL SQ SCH ×7 (08:12→21:43)
[2017-09-04] MEDS: Insulin DETEMIR 100 UNIT/ML X5UNITS SQ SCH ×2 (10:00→21:47)
[2017-09-04] MEDS ORDERED: Aminoglycoside Consult 1 EACH MC ONE (10:27)
--- NOTE | 2017-09-04 14:15 | Internal Med Progress Note ---
<Rach Lopez - Last Filed: 09/04/17 15:24> Date of Encounter: 09/04/17 Time of Encounter: 01:00 - Assessment and plan (1) Abscess of right foot Current Visit: Yes Status: Acute Assessment and plan: - Status post incision and drainage for right foot abscess on 08/31/17. - Right foot MRI on 09/02/17 found no evidence of osteomyelitis. Extensive myositis and some gas in the tissue likely secondary to the procedure. - Wound culture collected at [place] on 08/29/17 grew Enterococcus faecalis sensitive to ampicillin. - Currently on IV Zosyn (since 09/01) and vancomycin (since 09/01). Will switch to IV ampicillin. - Continue wound dressing change as recommended per podiatry. - Continue to monitor. (2) Type 2 diabetes mellitus Current Visit: Yes Status: Acute Assessment and plan: - Poorly controlled with Hgb A1C 8.4% on 08/30/17. - Better controlled as glucose in low 200s today (was mid 200s yesterday). - Continue insulin sliding scale, Levemir and pre-meal bolus insulin to maintain glucose between 140 and 180. Qualifiers: Diabetes mellitus complication status: without complication Diabetes mellitus detention insulin use: without detention use Qualified Code(s): E11.9 - Type 2 diabetes mellitus without complications (3) CAD (coronary artery disease) Current Visit: Yes Status: Acute Assessment and plan: - Continue aspirin, simvastatin, and Coreg. Qualifiers: Coronary Disease-Associated Artery/Lesion type: [place] artery [place] vs. transplanted heart: [place] heart Associated angina: without angina Qualified Code(s): I25.10 - Atherosclerotic heart disease of [place] coronary artery without angina pectoris (4) HTN (hypertension) Current Visit: Yes Status: Acute Assessment and plan: - BP within normal range. - Continue current antihypertensive regimen. Qualifiers: Hypertension type: essential hypertension Qualified Code(s): I10 - Essential (primary) hypertension (5) DVT prophylaxis Current Visit: Yes Status: Acute Assessment and plan: - Continue subcutaneous heparin. - Subjective Interval history: Patient was seen and examined this morning. Patient reports right foot pain slightly better compared to yesterday. Patient denies fever, chills, shortness of breath, chest pain, abdominal pain, diarrhea. - Constitutional Vitals: Temp Pulse Resp BP Pulse Ox 98.2 F 75 16 146/88 94 09/04/17 11:17 09/04/17 11:17 09/04/17 11:17 09/04/17 11:17 09/04/17 11:17 General appearance: Present: A&O X 3, no acute distress, answers questions appropriately - Head Head exam: Present: normal inspection - Eye Eye exam: Present: EOMI, conjuntiva pink, sclera anicteric - Neck Neck exam general surgery: Present: supple, trachea midline - Respiratory Respiratory exam: Present: decreased breath sounds. Absent: rales, rhonchi, wheezes - Cardiovascular Cardiovascular exam: Present: RRR, +S1, +S2 - GI/Abdominal GI/Abdominal exam: Present: normal bowel sounds, soft, no peritoneal signs. Absent: tenderness - Extremities Exam Extremities exam: Present: pedal edema (Bilateral lower extremity edema), warm. Absent: cyanotic Additional comments: Right foot with wound dressing and foot splint - Neurological Exam Neurological exam: Present: alert, no focal deficits. Absent: facial droop, speech deficit - Skin Skin exam: Present: dry, warm Internal Medicine: Result - Labs CBC & Chem 7: 09/04/17 04:16 09/04/17 04:16 Labs: Short CBC 09/04/17 Range/Units 04:16 WBC 8.5 (4.3-11.1) K/mcL Hgb 12.7 L (12.9-16.9) g/dL Hct 40.2 (37.5-50.1) % Plt Count 295 (140-400) K/mcL Neutrophils # 5.0 (1.6-8.9) K/mcL BMP 09/04/17 04:16 Sodium 134 L Potassium 4.2 Chloride 101 Carbon Dioxide 28 BUN 15 Creatinine 1.02 Glucose 218 H Calcium 8.5 L Consult Discharge Plan - Plan Referrals: [place],PCP [Primary Care Provider] - 09/07/17 2:45 pm ([facility]) <Brandan Lilly - Last Filed: 09/04/17 19:29> Date of Encounter: 09/04/17 - Assessment and plan (1) DVT prophylaxis Current Visit: Yes Status: Acute (2) Type 2 diabetes mellitus Current Visit: Yes Status: Acute Qualifiers: Diabetes mellitus complication status: without complication Diabetes mellitus terminal operator insulin use: without terminal operator use Qualified Code(s): E11.9 - Type 2 diabetes mellitus without complications (3) CAD (coronary artery disease) Current Visit: Yes Status: Acute Qualifiers: Coronary Disease-Associated Artery/Lesion type: [place] artery [place] vs. transplanted heart: [place] heart Associated angina: without angina Qualified Code(s): I25.10 - Atherosclerotic heart disease of [place] coronary artery without angina pectoris (4) HTN (hypertension) Current Visit: Yes Status: Acute Qualifiers: Hypertension type: essential hypertension Qualified Code(s): I10 - Essential (primary) hypertension (5) Abscess of right foot Current Visit: Yes Status: Acute - Constitutional Vitals: Temp Pulse Resp BP Pulse Ox 98.2 F 91 16 150/80 93 09/04/17 19:00 09/04/17 19:00 09/04/17 19:00 09/04/17 19:00 09/04/17 19:00 Internal Medicine: Result - Labs CBC & Chem 7: 09/04/17 04:16 09/04/17 04:16 Labs: Short CBC 09/04/17 Range/Units 04:16 WBC 8.5 (4.3-11.1) K/mcL Hgb 12.7 L (12.9-16.9) g/dL Hct 40.2 (37.5-50.1) % Plt Count 295 (140-400) K/mcL Neutrophils # 5.0 (1.6-8.9) K/mcL BMP 09/04/17 04:16 Sodium 134 L Potassium 4.2 Chloride 101 Carbon Dioxide 28 BUN 15 Creatinine 1.02 Glucose 218 H Calcium 8.5 L - Attending Attestation I conducted a face to face diagnostic evaluation of this patient and my medical decision-making was reviewed with the Resident Physician, Dr Korin Elliott. I agree with the documented findings, disposition and treatment plan as described except to the extent set forth below: Patient is in no acute distress presents. Patient has improved. Reports mild tenderness of the right forefoot with palpation. Plan: [facility] culture from the right foot grew enterococcus sensitive to ampicillin. We will switch to ampicillin and monitor clinically. Brandan Lilly MD
--- NOTE | 2017-09-04 14:34 | Podiatry Progress Note ---
Date of Encounter: 09/04/17 Time of Encounter: 12:00 - Assessment and Plan (1) Abscess of right foot Current Visit: Yes Status: Acute s/p incision and drainage. discussed course of recovery with patient. for discharge he will require daily wound care with mesalt packing after flushing the wound then apply 4x4 gauze, kerlix. ambulate only in diabetic boot. there is no infectious disease coverage for the hospital at this time. recommend covering staph and strep with 2 week course of oral antibiotics as there is no bone involvement and no further purulent drainage. hospitalist getting previous wound culture report from [place], cultures here consistent with staph and strep skin jose. will need f/u with me September 13 in wound care clinic. patient was discussed with resident hospitalist. Subjective Interval history: s/p incision and drainage of the right foot. says he is not having any pain. denies f/c/n/v/sob/cp. Objective - Vital Signs Vital Signs: Vital Signs Temp Pulse Resp BP Pulse Ox 09/04/17 11:17 98.2 F 75 16 146/88 94 09/04/17 06:12 97.4 F L 76 18 147/81 95 09/04/17 03:39 98.1 F 76 15 155/77 94 09/03/17 19:16 97.6 F 95 15 154/80 94 Intake and Output 09/03/17 09/04/17 09/04/17 23:59 07:59 15:59 Intake Total 440 / 440 450 / 450 360 / 360 Output Total 775 / 775 0 / 0 0 / 0 Balance -335 / -335 450 / 450 360 / 360 Intake: IV Fluids 200 / 200 450 / 450 Zosyn Premix 3.375 GM/200 ML 3. 200 / 200 200 / 200 375 gm In 200 ml @ 50 mls/hr IVPB Q8HR PAULINE Rx#:[id number] Vancocin 1,500 MG In Dextrose 5 250 / 250 % 250 ML @ 166.67 mls/hr IVPB Q12H PAULINE Rx#:[id number] Oral 240 / 240 0 / 0 360 / 360 Output: Urine 775 / 775 0 / 0 0 / 0 Other: Meal Dinner Lunch Percent of Meal Consumed 100% 100% Weight 145.3 kg Blood Glucose* 257 205 241 Patient Weight 09/04/17 23:59 Weight 145.3 kg - Exam Exam: no purulent drainage expressed plantar foot. 2nd interspace open area from I&D with some serous drainage. dorsal foot erythema has improved. absent sensation to light touch consistent with his neuropathy. - Lab Result Diagrams: 09/04/17 04:16 09/04/17 04:16 Labs: Abnormal lab results Hgb 12.7 g/dL (12.9-16.9) L 09/04/17 04:16 MCH 27.4 pg (28.0-33.3) L 09/04/17 04:16 ESR 127 mm/hr (0-10) H 09/03/17 02:25 Sodium 134 mEq/L (136-145) L 09/04/17 04:16 Glucose 218 mg/dL (70-105) H 09/04/17 04:16 POC Glucose 257 (58-89) H 09/03/17 19:56 Hemoglobin A1c 8.4 % (-5.6) H 08/30/17 06:06 Calcium 8.5 mg/dL (8.6-10.3) L 09/04/17 04:16 C-Reactive Protein 77 mg/L (Less than 10) H 08/30/17 17:54 Microbiology, Last 48 Hours 09/01/17 00:08 Anaerobic Culture - Preliminary Right Foot At this time, no anaerobic growth is present. The culture will be finalized after 5 days of incubation. 09/01/17 00:08 Wound Culture - Final Right Foot Normal skin jose. No apparent pathogens isolated. Consult Discharge Plan - Plan Referrals: [facility] [Outside] - 09/07/17 2:45 pm
[2017-09-04] MEDS ORDERED: Ampicillin 2 GM in 0.9 % Sodium Chloride Mini Bag 100 ML IVPB SCH (16:00)
[2017-09-04] MEDS: Ampicillin 2 GM in 0.9 % Sodium Chloride Mini Bag 100 ML IVPB SCH ×2 (18:08→21:41)
[2017-09-05] MEDS: Ampicillin 2 GM in 0.9 % Sodium Chloride Mini Bag 100 ML IVPB SCH ×6 (00:22→21:16)
[2017-09-05] MEDS: hydrALAZINE 25 MG TABLET PO SCH ×4 (00:22→18:13)
[2017-09-05] MEDS ORDERED: Vancomycin 1,750 MG in D5% in Water 500 ML IVPB SCH (01:00)
[2017-09-05 04:52] LABS: Basophils # 0.1 K/mcL (0.0-0.2); Basophils % 0.8 %; Eosinophils # 0.3 K/mcL (0.0-0.6); Eosinophils % 3.2 %; Hematocrit 39.2 % (37.5-50.1); Hemoglobin 12.8 g/dL (12.9-16.9); Immature Granulocytes % 0.7 % (0-4); Lymphocytes # 2.6 K/mcL (0.6-4.6); Lymphocytes % 28.3 %; Mean Corpuscular HGB Conc 32.7 g/dL (31.6-35.5); Mean Corpuscular Hemoglobin 27.6 pg (28.0-33.3); Mean Corpuscular Volume 84.7 fL (83.0-100.0); Mean Platelet Volume 10.3 fL (9.4-12.4); Monocytes # 0.8 K/mcL (0.0-1.3); Monocytes % 8.5 %; Neutrophils # 5.4 K/mcL (1.6-8.9); Platelet Count 281 K/mcL (140-400); Red Blood Count 4.63 M/mcL (4.19-5.50); Red Cell Distribution Width 13.9 % (11.5-14.5); Segmented Neutrophils % 58.5 %
[2017-09-05 05:03] LABS: BUN/Creatinine Ratio 22 (6-26); Blood Urea Nitrogen 17 mg/dL (8-23); Calcium 8.6 mg/dL (8.6-10.3); Carbon Dioxide 22 mEq/L (23-29); Chloride 103 mEq/L (98-107); Glucose 251 mg/dL (70-105); Osmolality,Calculated 286 (280-300); Potassium 4.1 mEq/L (3.5-5.1); Sodium 133 mEq/L (136-145); eGFR For African Americans > 60 (> 60); eGFR For Non-African Americans > 60 (> 60)
[2017-09-05] MEDS: *HR* Heparin 5,000 UNIT/ML VIAL SQ SCH ×3 (05:30→21:17)
[2017-09-05] MEDS: Insulin LISPRO 300 UNITS/3 ML VIAL SQ SCH ×7 (08:46→21:18)
[2017-09-05] MEDS: Insulin DETEMIR 100 UNIT/ML X5UNITS SQ SCH ×2 (08:47→21:17)
[2017-09-05] MEDS: Aspirin Enteric Coated 81 MG Tablet PO SCH (08:49)
[2017-09-05] MEDS: Furosemide 40 MG TABLET PO SCH (08:49)
--- NOTE | 2017-09-05 09:31 | Discharge Summary ---
<Rach Lopez - Last Filed: 09/05/17 12:48> Date of Encounter: 09/05/17 Time of Encounter: 08:45 - Discharge Diagnosis (1) Abscess of right foot Priority: Primary Status: Acute (2) Type 2 diabetes mellitus Priority: Secondary Status: Acute Qualifiers: Diabetes mellitus complication status: without complication Diabetes mellitus terminal press operator insulin use: without terminal press operator use Qualified Code(s): E11.9 - Type 2 diabetes mellitus without complications (3) CAD (coronary artery disease) Priority: Secondary Status: Acute Qualifiers: Coronary Disease-Associated Artery/Lesion type: [place] artery [place] vs. transplanted heart: [place] heart Associated angina: without angina Qualified Code(s): I25.10 - Atherosclerotic heart disease of [place] coronary artery without angina pectoris (4) HTN (hypertension) Priority: Secondary Status: Acute Qualifiers: Hypertension type: essential hypertension Qualified Code(s): I10 - Essential (primary) hypertension - Discharge Medications Prescriptions: HYDROcodone/Acet 5/325 mg [[place] 5-325 mg] 1 tab PO Q4HR PRN 5 Days #30 tablet PRN Reason: Moderate Pain (4-6) Amoxicillin 875 mg PO Q12H #20 tablet Home Medications: Aspirin Enteric Coated [Aspirin EC] 81 mg PO DAILY 08/29/17 [History] Carvedilol 12.5 mg PO BID 08/29/17 [History] Metformin HCl [Glucophage] 1,000 mg PO QAM 08/29/17 [History] Sildenafil Citrate [Viagra] 100 mg PO AD PRN 08/29/17 [History] Simvastatin [Zocor] 40 mg PO HS 08/29/17 [History] glipiZIDE [Glucotrol] 5 mg PO BIDWM 08/29/17 [History] hydrALAZINE [HydrALAZINE] 25 mg PO Q6HR 08/29/17 [History] metFORMIN [Glucophage] 500 mg PO BID 08/29/17 [History] Furosemide [Lasix] 40 mg PO DAILY 08/31/17 [History] Amoxicillin 875 mg PO Q12H #20 tablet 09/05/17 [Rx] HYDROcodone/Acet 5/325 mg [[place] 5-325 mg] 1 tab PO Q4HR PRN 5 Days #30 tablet 09/05/17 [Rx] Allergies/Adverse Reactions: 3 Allergy/AdvReac Type Severity Reaction Status Date / Time lisinopril AdvReac Cough Verified 08/29/17 17:41 Procedures/tests Complete & Pending: Procedures Performed prior 72 hours Category Date Time Status MR foot RT wo/w con [MR] Stat MRI 09/02/17 16:16 Completed Date of admission: 08/30/17 05:53 Primary care physician: PCP [place] Discharging clinician: Rach Lopez Anticipated date of discharge: 09/05/17 - Patient Status Disposition: Transfer [facility] Condition: Fair Functional capacity at discharge: uses cane/walker Overall status at discharge: patient is progressing back to baseline - Discharge Instructions Instructions: Cellulitis (DC), Diabetes Mellitus Type 2 in Adults (DC) Follow Up With: [place],PCP [Primary Care Provider] - 09/07/17 2:45 pm ([facility]) Additional Instructions: Please take prescribed amoxicillin 875 mg by mouth twice a day for 10 more days. You can use prescribed [place] 5-325 mg by mouth every 4 hours as needed for your pain. Please have daily wound care with mesalt packing after flushing the wound then apply 4x4 gauze, Kerlix. Ambulate only in diabetic boot. - Diet and Activity Activity: as per physical therapy, increase activity as tolerated Diet: diabetic diet Hospital course: Mr. Rico is a 62 year old male with PMH of DM, CAD s/p stents 2 years ago, HTN and HLD who was sent from [place] for right foot pain after stepping on a toothpick 6 days prior. In ED, erythema and swelling on the dorsum and plantar aspect of the right foot were noted on exam. Patient was admitted on 08/30/17 for right foot cellulitis and started on IV vancomycin and Zosyn. Given moderate amount of pus expressed from puncture wound, there's concern of abscess and podiatry was consulted. Patient had incision and drainage for right foot abscess on 08/31/17. Right foot MRI on 09/02/17 found no evidence of osteomyelitis. Extensive myositis and some gas in the tissue likely secondary to the procedure. Wound culture collected at [place] on 08/29/17 came back with Enterococcus faecalis sensitive to ampicillin. Therefore patient's antibiotic therapy was switched to IV ampicillin on 09/04/17 but patient tolerates it well since. On 09/05/17, patient's right foot pain has significantly improved and patient [facility] [place] [facility]. Given patient improves clinically and remains hemodynamically stable, patient can be discharged to [place] in [place] with prescribed amoxicillin 875 mg by mouth twice a day for 10 more days to finish antibiotic therapy for the right foot cellulitis/abscess. Patient can use prescribed [place] 5-325 mg by mouth every 4 hours as needed for pain. Patient will need daily wound care with mesalt packing after flushing the wound then apply 4x4 gauze, Kerlix. Ambulate only in diabetic boot. Patient expressed his understanding and agreement with the discharge plan. All questions were answered. - Time Spent with Patient Total time spent providing and/or coordinating discharge services: Greater than 30 minutes (48 minutes) - Constitutional Vitals: Temp Pulse Resp BP Pulse Ox 98.6 F 78 17 164/91 93 09/05/17 07:18 09/05/17 07:18 09/05/17 07:18 09/05/17 07:18 09/05/17 07:18 General appearance: Present: A&O X 3, morbidly obese, no acute distress, answers questions appropriately - Head Head exam: Present: normal inspection - Eye Eye exam: Present: EOMI, conjuntiva pink, sclera anicteric - Neck Neck exam general surgery: Present: supple, trachea midline - Respiratory Respiratory exam: Present: decreased breath sounds. Absent: accessory muscle use, rales, rhonchi, wheezes - Cardiovascular Cardiovascular exam: Present: RRR, +S1, +S2 - GI/Abdominal GI/Abdominal exam: Present: normal bowel sounds, soft, no peritoneal signs. Absent: tenderness - Extremities Exam Extremities exam: Present: pedal edema (BLE edema), warm. Absent: cyanotic Additional comments: Right foot with wound dressing and foot splint - Neurological Exam Neurological exam: Present: alert, oriented X3, no focal deficits. Absent: facial droop, speech deficit - Skin Skin exam: Present: dry, warm <Brandan Lilly - Last Filed: 09/05/17 18:04> Date of Encounter: 09/05/17 - Discharge Diagnosis (1) DVT prophylaxis Status: Acute (2) Type 2 diabetes mellitus Status: Acute Qualifiers: Diabetes mellitus complication status: without complication Diabetes mellitus half-way insulin use: without terminal press operator use Qualified Code(s): E11.9 - Type 2 diabetes mellitus without complications (3) CAD (coronary artery disease) Status: Acute Qualifiers: Coronary Disease-Associated Artery/Lesion type: [place] artery [place] vs. transplanted heart: [place] heart Associated angina: without angina Qualified Code(s): I25.10 - Atherosclerotic heart disease of [place] coronary artery without angina pectoris (4) HTN (hypertension) Status: Acute Qualifiers: Hypertension type: essential hypertension Qualified Code(s): I10 - Essential (primary) hypertension (5) Abscess of right foot Status: Acute Date of admission: 08/30/17 05:53 Primary care physician: PCP [place] Hospital course: Mr. Rico is a 62 year old male - Time Spent with Patient Total time spent providing and/or coordinating discharge services: - Constitutional Vitals: Temp Pulse Resp BP Pulse Ox 97.6 F 81 20 169/82 92 09/05/17 16:31 09/05/17 16:31 09/05/17 16:31 09/05/17 16:31 09/05/17 16:31 - Attending Attestation I conducted a face to face diagnostic evaluation of this patient and my medical decision-making was reviewed with the Resident Physician, Dr Rach Lopez. I agree with the documented findings, disposition and treatment plan as described except to the extent set forth below: She has foot pain has improved. On exam there is a plantar incision packed with dressing. There is no drainage , no surrounding erythema, no necrotic tissue and no bleeding. The wound is healing well. Assessment: Plantar abscess with Enterococcus faecalis sensitive to ampicillin. Plan: Switch to amoxicillin and discharged patient home with wound care orders. Brandan Lilly MD
[2017-09-06] MEDS: Ampicillin 2 GM in 0.9 % Sodium Chloride Mini Bag 100 ML IVPB SCH ×4 (00:21→13:46)
[2017-09-06] MEDS: hydrALAZINE 25 MG TABLET PO SCH ×3 (00:21→13:19)
[2017-09-06] MEDS: *HR* Heparin 5,000 UNIT/ML VIAL SQ SCH (05:28)
[2017-09-06 08:00] LABS: Basophils # 0.1 K/mcL (0.0-0.2); Basophils % 0.8 %; Eosinophils # 0.3 K/mcL (0.0-0.6); Eosinophils % 3.4 %; Hematocrit 41.3 % (37.5-50.1); Hemoglobin 13.1 g/dL (12.9-16.9); Lymphocytes # 2.3 K/mcL (0.6-4.6); Lymphocytes % 24.7 %; Mean Corpuscular HGB Conc 31.7 g/dL (31.6-35.5); Mean Corpuscular Hemoglobin 27.2 pg (28.0-33.3); Mean Corpuscular Volume 85.7 fL (83.0-100.0); Mean Platelet Volume 10.1 fL (9.4-12.4); Monocytes # 0.7 K/mcL (0.0-1.3); Monocytes % 7.6 %; Neutrophils # 5.7 K/mcL (1.6-8.9); Platelet Count 294 K/mcL (140-400); Red Blood Count 4.82 M/mcL (4.19-5.50); Segmented Neutrophils % 62.5 %
--- NOTE | 2017-09-06 08:30 | Internal Med Progress Note ---
<Rach Lopez - Last Filed: 09/06/17 08:36> Date of Encounter: 09/06/17 Time of Encounter: 07:45 - Assessment and plan (1) Abscess of right foot Status: Acute Assessment and plan: - Status post incision and drainage for right foot abscess on 08/31/17. - Right foot MRI on 09/02/17 found no evidence of osteomyelitis. Extensive myositis and some gas in the tissue likely secondary to the procedure. - Wound culture collected at [place] on 08/29/17 grew Enterococcus faecalis sensitive to ampicillin. - Currently on IV ampicillin (since 09/04). - Continue wound dressing change as recommended per podiatry. - Patient now wants to be discharged home and follow up with his PCP at [facility] on 09/07/17. Patient is instructed to take prescribed amoxicillin 875 mg by mouth twice a day for 10 more days to finish antibiotic therapy for the right foot cellulitis/abscess. Patient is also instructed to follow up with his PCP at [place] closely regarding his right foot wound. Patient expressed his understanding and agreement with the discharge plan. All questions were answered. Please see discharge summary from 09/05/17 for further detail except that patient will be discharged home instead of transferring to [facility]. (2) Type 2 diabetes mellitus Status: Acute Assessment and plan: - Poorly controlled with Hgb A1C 8.4% on 08/30/17. - Better controlled as glucose in 177 this morning (was mid 200s yesterday). - Continue insulin sliding scale, Levemir and pre-meal bolus insulin to maintain glucose between 140 and 180. Qualifiers: Diabetes mellitus complication status: without complication Diabetes mellitus care home insulin use: without care home use Qualified Code(s): E11.9 - Type 2 diabetes mellitus without complications (3) CAD (coronary artery disease) Status: Acute Assessment and plan: - Continue aspirin, simvastatin, and Coreg. Qualifiers: Coronary Disease-Associated Artery/Lesion type: [place] artery [place] vs. transplanted heart: [place] heart Associated angina: without angina Qualified Code(s): I25.10 - Atherosclerotic heart disease of [place] coronary artery without angina pectoris (4) HTN (hypertension) Status: Acute Assessment and plan: - BP within normal range. - Continue current antihypertensive regimen. Qualifiers: Hypertension type: essential hypertension Qualified Code(s): I10 - Essential (primary) hypertension (5) DVT prophylaxis Status: Acute Assessment and plan: - On subcutaneous heparin. - Subjective Interval history: Patient was seen and examined this morning. Patient reports right foot pain continues to improve compared to yesterday. Patient denies fever, chills, shortness of breath, chest pain, abdominal pain, nausea, vomiting, diarrhea. Patient states he is ready to go home. - Constitutional Vitals: Temp Pulse Resp BP Pulse Ox 99.3 F 76 16 161/93 91 09/06/17 06:45 09/06/17 06:45 09/06/17 06:45 09/06/17 06:45 09/06/17 06:45 General appearance: Present: A&O X 3, morbidly obese, no acute distress, answers questions appropriately - Head Head exam: Present: normal inspection - Eye Eye exam: Present: EOMI, conjuntiva pink, sclera anicteric - Neck Neck exam general surgery: Present: normal inspection, supple, trachea midline - Respiratory Respiratory exam: Present: decreased breath sounds. Absent: accessory muscle use - Cardiovascular Cardiovascular exam: Present: RRR, +S1, +S2 - GI/Abdominal GI/Abdominal exam: Present: normal bowel sounds, soft, no peritoneal signs. Absent: tenderness - Extremities Exam Extremities exam: Present: pedal edema (BLE edema), warm. Absent: cyanotic Additional comments: Right foot with wound dressing and foot splint - Neurological Exam Neurological exam: Present: alert, oriented X3. Absent: facial droop, speech deficit - Skin Skin exam: Present: dry, warm Internal Medicine: Result - Labs CBC & Chem 7: 09/06/17 07:33 09/05/17 04:37 Labs: Short CBC 09/06/17 Range/Units 07:33 WBC 9.2 (4.3-11.1) K/mcL Hgb 13.1 (12.9-16.9) g/dL Hct 41.3 (37.5-50.1) % Plt Count 294 (140-400) K/mcL Neutrophils # 5.7 (1.6-8.9) K/mcL Consult Discharge Plan - Plan Instructions: Cellulitis (DC), Diabetes Mellitus Type 2 in Adults (DC), Acute Wound Care (GEN) Additional Instructions: Please take prescribed amoxicillin 875 mg by mouth twice a day for 10 more days. You can use prescribed [place] 5-325 mg by mouth every 4 hours as needed for your pain. Please have daily wound care with mesalt packing after flushing the wound then apply 4x4 gauze, Kerlix. Ambulate only in diabetic boot. Referrals: Partha Vigil DPM [Partnered Physician] - 09/11/17 1:00 pm [place],PCP [Primary Care Provider] - 09/07/17 2:45 pm ([facility]) Prescriptions: HYDROcodone/Acet 5/325 mg [[place] 5-325 mg] 1 tab PO Q4HR PRN 5 Days #30 tablet PRN Reason: Moderate Pain (4-6) Amoxicillin 875 mg PO Q12H #20 tablet <Brandan Lilly - Last Filed: 09/06/17 17:36> Date of Encounter: 09/06/17 - Assessment and plan (1) DVT prophylaxis Status: Acute (2) Type 2 diabetes mellitus Status: Acute Qualifiers: Diabetes mellitus complication status: without complication Diabetes mellitus care home insulin use: without regional intermodal truck driver use Qualified Code(s): E11.9 - Type 2 diabetes mellitus without complications (3) CAD (coronary artery disease) Status: Acute Qualifiers: Coronary Disease-Associated Artery/Lesion type: [place] artery [place] vs. transplanted heart: [place] heart Associated angina: without angina Qualified Code(s): I25.10 - Atherosclerotic heart disease of [place] coronary artery without angina pectoris (4) HTN (hypertension) Status: Acute Qualifiers: Hypertension type: essential hypertension Qualified Code(s): I10 - Essential (primary) hypertension (5) Abscess of right foot Status: Acute - Constitutional Vitals: Temp Pulse Resp BP Pulse Ox 97.4 F L 72 16 147/84 93 09/06/17 10:53 09/06/17 10:53 09/06/17 10:53 09/06/17 10:53 09/06/17 10:53 Internal Medicine: Result - Labs CBC & Chem 7: 09/06/17 07:33 09/06/17 09:29 Labs: Short CBC 09/06/17 Range/Units 07:33 WBC 9.2 (4.3-11.1) K/mcL Hgb 13.1 (12.9-16.9) g/dL Hct 41.3 (37.5-50.1) % Plt Count 294 (140-400) K/mcL Neutrophils # 5.7 (1.6-8.9) K/mcL [facility] 09/06/17 09:29 Sodium 135 L Potassium 4.1 Chloride 102 Carbon Dioxide 28 BUN 15 Creatinine 0.90 Glucose 267 H Calcium 8.8 - Attending Attestation I conducted a face to face diagnostic evaluation of this patient and my medical decision-making was reviewed with the Resident Physician, Dr Rach Lopez. I agree with the documented findings, disposition and treatment plan as described except to the extent set forth below: Patient is in no acute distress awake alert oriented. Heart is regular. Lungs are clear. Right lower extremity is immobilized in a boot. Plan: Discharge home with wound care as above. Complete course of amoxicillin. [facility]. Brandan Lilly MD
[2017-09-06] MEDS: Aspirin Enteric Coated 81 MG Tablet PO SCH (09:17)
[2017-09-06] MEDS: Insulin DETEMIR 100 UNIT/ML X5UNITS SQ SCH (09:17)
[2017-09-06] MEDS: Furosemide 40 MG TABLET PO SCH (09:17)
[2017-09-06] MEDS: Insulin LISPRO 300 UNITS/3 ML VIAL SQ SCH ×4 (09:18→13:19)
[2017-09-06 09:50] LABS: BUN/Creatinine Ratio 17 (6-26); Blood Urea Nitrogen 15 mg/dL (8-23); Calcium 8.8 mg/dL (8.6-10.3); Carbon Dioxide 28 mEq/L (23-29); Chloride 102 mEq/L (98-107); Glucose 267 mg/dL (70-105); Osmolality,Calculated 290 (280-300); Potassium 4.1 mEq/L (3.5-5.1); Sodium 135 mEq/L (136-145); eGFR For African Americans > 60 (> 60); eGFR For Non-African Americans > 60 (> 60)
[2017-09-06 10:55] VITALS: BP 147/84
--- NOTE | 2017-09-06 13:35 | Podiatry Progress Note ---
Date of Encounter: 09/06/17 Time of Encounter: 13:00 - Assessment and Plan (1) Cellulitis Current Visit: Yes Status: Acute S/p right foot abscess by Dr. Vigil on 08/31/17 Dressing changed at bedside, cellulitis has resolved with an open surgical wound to the plantar aspect of the right foot at the base of toes #3,#4. Small amount of serous drainage observed to dressing. WBC: 9.2, a febrile Microbiology 09/01/17 00:08 Right Foot Anaerobic Culture - Final No anaerobes were recovered. 09/01/17 00:08 Right Foot Wound Culture - Final Normal skin jose. No apparent pathogens isolated. Plan: Wound care to include flushing wound daily with saline, pat dry, pack with mesalt, apply dry sterile 4x4 gauze and kerlix. Remain protected weight bearing with diabetic cast boot, try to keep as much weight off of right foot as possible. Amoxicillin prescribed upon discharge. F/u with Dr. Vigil on September 11, 2016. Keep RLE elevated while at rest. Qualifiers: Site of cellulitis: extremity Site of cellulitis of extremity: lower extremity Laterality: right Qualified Code(s): L03.115 - Cellulitis of right lower limb (2) Diabetic foot Current Visit: Yes Status: Acute (3) Type 2 diabetes mellitus Current Visit: Yes Status: Acute Qualifiers: Diabetes mellitus complication status: without complication Diabetes mellitus joint terminal attack controller insulin use: without long-term use Qualified Code(s): E11.9 - Type 2 diabetes mellitus without complications Subjective Interval history: Patient is sitting up in bed with dressing intact to right foot with diabetic cast boot on. S/p I&D right foot abscess by Dr. Vigil on 08/31/17. Patient states he wants to go home and is feeling better. No c/o pain, fever or chills. Patient states he is going back to [place] on September 11 in the evening. Objective - Vital Signs Vital Signs: Vital Signs Temp Pulse Resp BP Pulse Ox 09/06/17 10:53 97.4 F L 72 16 147/84 93 09/06/17 06:45 99.3 F 76 16 161/93 91 09/06/17 04:46 97.9 F 90 20 154/88 93 09/05/17 16:31 97.6 F 81 20 169/82 92 Intake and Output 09/05/17 09/06/17 09/06/17 23:59 07:59 15:59 Intake Total 320 / 320 200 / 200 580 / 580 Output Total 0 / 0 0 / 0 Balance 320 / 320 200 / 200 580 / 580 Intake: IV Fluids 200 / 200 200 / 200 100 / 100 Ampicillin 2 GM In 0.9 % Sodium 200 / 200 200 / 200 100 / 100 Chloride (Mini-Bag +) 100 ML @ 200 mls/hr IVPB Q4H PAULINE Rx#: [id number] Oral 120 / 120 0 / 0 480 / 480 Output: Urine 0 / 0 0 / 0 Other: Meal Dinner Lunch Percent of Meal Consumed 100% 100% # Voids 1 Blood Glucose* 313 177 239 - Exam Exam: General appearance: alert awake oriented X 3. Calm and pleasant, no acute distress.. Vascular: Pedal pulses +2/4 DP/PT , No evidence of cyanosis, pallor or rubor, Edema graded at 1+/4, Skin Tempature warm, No calf pain with manual compression. capillary refill time is immediate to digits. Neurologic: Sensation intact with light touch to foot. . Postop Exam: S/P Open surgical wound to the plantar aspect of the right foot at the base of toes #2 , #3 right measuring 1.5 cm in length x 0.5 cm in width x 2 cm in depth , no pus, no odor, no periwound erythema. Small amount of serous drainage observed to abd pad. - Lab Result Diagrams: 09/06/17 07:33 09/06/17 09:29 Labs: Abnormal lab results MCH 27.2 pg (28.0-33.3) L 09/06/17 07:33 ESR 127 mm/hr (0-10) H 09/03/17 02:25 Sodium 135 mEq/L (136-145) L 09/06/17 09:29 Glucose 267 mg/dL (70-105) H 09/06/17 09:29 POC Glucose 239 (58-89) H 09/06/17 11:37 Hemoglobin A1c 8.4 % (-5.6) H 08/30/17 06:06 C-Reactive Protein 77 mg/L (Less than 10) H 08/30/17 17:54 Microbiology, Last 48 Hours 09/01/17 00:08 Anaerobic Culture - Final Right Foot No anaerobes were recovered. Consult Discharge Plan - Plan Instructions: Cellulitis (DC), Diabetes Mellitus Type 2 in Adults (DC), Acute Wound Care (GEN) Additional Instructions: Please take prescribed amoxicillin 875 mg by mouth twice a day for 10 more days. You can use prescribed [place] 5-325 mg by mouth every 4 hours as needed for your pain. Please have daily wound care with mesalt packing after flushing the wound then apply 4x4 gauze, Kerlix. Ambulate only in diabetic boot. Referrals: Partha Vigil DPM [Partnered Physician] - 09/11/17 1:00 pm MD,PCP [Primary Care Provider] - 09/07/17 2:45 pm ([facility]) Prescriptions: HYDROcodone/Acet 5/325 mg [[place] 5-325 mg] 1 tab PO Q4HR PRN 5 Days #30 tablet PRN Reason: Moderate Pain (4-6) Amoxicillin 875 mg PO Q12H #20 tablet
== END 2017-09-06 17:15 | disposition home or self-care (01) | DRG 580 ==
LOC: EMEROO 17:33 → 3ANU 17:33 → SUATTDRO 08-30 05:53
PROVIDERS: ADMIT Family Medicine; ATTEND Internal Medicine